=== PATIENT | male | born 1965 | race Caucasian/White ===

== ENCOUNTER 2019-10-31 10:35 | Day surgery (SDC) | payer OTHER, SELFPAY ==
[2019-10-31] VITALS (9 sets, daily range): BP systolic 110–161; BP diastolic 66–91; PULSE 55–95; RESP 13–22; TEMP 36.7–36.9; O2SAT 95–99
--- NOTE | ~2019-10-31 | CT_ITS ---
EXAMINATION: CT abdomen pelvis wo con DATE: 10/31/2019 11:30 INDICATION: Nephrolithiasis presenting with left flank pain. TECHNIQUE: Computed tomography (CT) of the abdomen and pelvis was performed without intravenous contr ast. Automated exposure control and iterative reconstruction technique were employed. The dose-length product was 212.57 mGy-cm. COMPARISON: None FINDINGS: Minimal dependent atelectasis in the bilateral lower lobes. Heart size is normal. No pericardial or p leural effusion. Atherosclerotic coronary artery calcifications. Liver, gallbladder, spleen, pancreas and bilateral adrenal glands are normal. 6.5 cm cyst at the mid right kidney. Combination of atheros clerotic calcifications and several renal stones at the bilateral renal keerthi. The largest renal stone s on the lower pole calyces of both kidneys measuring 6 mm on the right and 5 mm on the left. 16 x 8 x 9 mm obstructing stone at the left ureteropelvic junction with mild left hydronephrosis and perinep hric stranding. There is dense calcified atherosclerosis of the aorta and many of the other arteries with mild to moderate stenosis at the bilateral common iliac arteries. There are few scattered coloni c diverticula without adjacent inflammatory change to suggest diverticular colitis. Small bowel and a ppendix are normal. Bladder is normal. Tiny fat-containing left inguinal hernia. No free intraperiton eal gas or fluid. No pathologically enlarged abdominal or pelvic lymphadenopathy. Mild lower thoracic and minimal lumbar spondylosis. IMPRESSION: 1. Bilateral nephrolithiasis with obstructing 16 x 8 x 9 mm stone at the left ureteropelvic junction resulting in mild left hydronephrosis. Reviewed, dictated and finalized at location A. IMPRESSION: 1. Bilateral nephrolithiasis with obstructing 16 x 8 x 9 mm stone at the left u reteropelvic junction resulting in mild left hydronephrosis.
--- NOTE | ~2019-10-31 | XR_ITS ---
XR abdomen/kub 1V DATE: 10/31/2019 11:38 INDICATION: Left-sided abdominal pain for 2 days TECHNIQUE: AP projection, 2 views COMPARISON: 10/31/[address] abdomen pelvis FINDINGS: There is an approximately 8 x 17 mm calcified calculus overlying the left ureteropelvic joe ction. There is left nephromegaly and suggestion of left hydronephrosis. Prominent bilateral arterial calcifications of the kidneys are noted in addition to bilateral calcifi ed renal stones. No bowel obstruction. The psoas shadows are intact. No visceromegaly is evident. There is extensive calcification of the iliac arteries as well as abdominal aortic calcification. IMPRESSION: 8 x 17 mm left ureteropelvic calcified stone Bilateral renal calcified renal stones Reviewed, dictated and finalized at Location A. Reviewed, dictated and finalized at location B.
--- NOTE | ~2019-10-31 | XR_ITS ---
EXAMINATION: XR retrograde pyelo w/stent LT DATE: 10/31/2019 15:26 INDICATION: Left internal ureteral stent placement TECHNIQUE: Fluoroscopic images from a left internal ureteral stent placement are submitted for review . 109 seconds of fluoroscopy time. FINDINGS: There is a left double-J internal ureteral stent projecting in expected position, with proximal [place] loop at the level of the renal pelvis and distal loop in the pelvis within the bladder lumen. IMPRESSION: 1. Left internal ureteral stent placement. Please refer to real-time procedural findings for detail s. Reviewed, dictated and finalized at location A. IMPRESSION: 1. Left internal ureteral stent placement. Please refer to real-time procedur al findings for details.
[2019-10-31] MEDS: SODIUM CHLORIDE 0.9% IV 1,000 ML 999 ML IV CONT ×2 (11:15→12:36)
[2019-10-31 11:57] LABS: Basophils Absolute Auto 0.1 K/mm3 (0.0-0.1); Basophils Percent Auto 0.6 % (0.2-1.2); Eosinophils Absolute Auto 0.1 K/mm3 (0-0.3); Eosinophils Percent Auto 0.7 % (0-4.4); Hematocrit 44.1 % (42.0-52.0); Hemoglobin 15.1 g/dL (14.0-18.0); Immature Granulocyte Absolute 0.04 K/mm3 (0.00-0.031); Immature Granulocyte Percent A 0.3 % (0-0.5); Lymphocytes Absolute Auto 2.78 K/mm3 (0.9-3.2); Mean Corpuscular HGB Conc 34.2 g/dl (32-36); Mean Corpuscular Hemoglobin 30.2 pg (26-34); Mean Corpuscular Volume 88.2 fl (80-100); Mean Platelet Volume 9.5 fl (7.4-10.4); Monocytes Absolute Auto 1.2 K/mm3 (0.1-0.6); Monocytes Percent Auto 7.9 % (2.6-8.5); Neutrophils Absolute Auto 10.5 K/mm3 (1.3-6.7); Neutrophils Percent Auto 71.5 % (45.5-73.1); Platelet Count Result 359 k/mm3 (150-375); Red Cell Distribution Width 12.7 % (11.5-14.5); White Blood Count 14.6 K/mm3 (4.5-10.0)
[2019-10-31 12:10] LABS: Alanine Aminotransferase 10 U/L (4-50); Alkaline Phosphatase 105 U/L (38-126); Aspartate Amino Transferase 18 U/L (17-59); Bilirubin,Total 0.8 mg/dL (0.2-1.3); Blood Urea Nitrogen 15 mg/dL (9-20); Calcium 8.7 mg/dL (8.4-10.2); Carbon Dioxide 27 mmol/L (22-30); Chloride 102 mmol/L (98-107); Estimated CRCL calculation 103 ml/min; Estimated Glomerular Filt Rate > 60; Glucose 92 mg/dL (75-110); Potassium 3.7 mmol/L (3.4-5.0); Sodium 135 mmol/L (137-145)
[2019-10-31] MEDS: FAMOTIDINE 20 MG/2 ML VIAL IV PUSH (12:13)
[2019-10-31] MEDS: MORPHINE SULFATE 4 MG/ML INJ IV PUSH ×2 (12:13→13:50)
[2019-10-31 12:53] LABS: Add Urine Microscopic? YES; Appearance Urine Clear (Clear); Bacteria Urine Trace /hpf; Bilirubin Urine Negative (Negative); Blood Urine 2+ (Negative); Color Urine Yellow (Yellow); Glucose Urine UA Negative (Negative); Ketones Urine Negative (Negative); Leukocyte Esterase Ur 3+ LEU/UL (Negative); Mucus Urine Rare /lpf; Nitrate Urine Negative (Negative); Protein Urine 1+ mg/dL (Negative); WBC Urine 31-50 /hpf
--- NOTE | 2019-10-31 14:14 | ED.ABDPAIN ---
HPI - Abdominal Pain General Chief Complaint: Urogenital-Male Stated Complaint: Poss kidney stone Time Seen by Provider: 10/31/19 10:40 Source: patient and family Mode of arrival: ambulatory Limitations: no limitations History of Present Illness HPI narrative: Patient is a 54-year-old male who presents for evaluation of left flank pain was seen last night diagnosed with a large stone patient notes moderate aching pain to the left flank which has been persistent when it initially onset he had multiple episodes of emesis which have improved patient notes he has continued to have pain. Patient notes history of urolithiasis. Patient did not fill his medication Related Data Home Medications Medication Instructions Recorded Confirmed No Home Medications 10/31/19 10/31/19 Allergies Allergy/AdvReac Type Severity Reaction Status Date / Time No Known Allergies Allergy Verified 10/31/19 11:25 Review of Systems Review of Systems: All systems reviewed & are unremarkable except as noted in HPI and below PMFSH Past Medical History Medical History Urolithiasis Surgical History Surgical History H/O lithotripsy Social History Social History (Updated 10/31/19 @ 14:18 by Jeffery Barnes PA-C) Smoking status: Current every day smoker Gender identity (if verbalized by the patient): Male Exam Narrative: Exam Narrative: GENERAL: Well-appearing, well-nourished, and in no acute distress. HEAD: Normocephalic, atraumatic. EYES: PERRLA and EOMI. ENT: Nares clear, no rhinorrhea or epistaxis. Mucous membranes moist. CHEST: Clear to auscultation. No respiratory distress. No wheezes rales or rhonchi HEART: Regular rate and rhythm. No murmur heard. Normal peripheral pulses. ABDOMEN: Soft, tenderness left flank, nondistended EXTREMITIES: Normal range of motion. No edema. SKIN: Warm, dry, no rash. NEURO: No focal deficits. Alert and oriented x3. PSYCH: Normal mood and affect. Course Course Emergency Course: Patient in the room aware of case findings treatment plan diagnosis. Patient given antibiotics fluids and pain management in the emergency department. Patient aware of discussion with urology Reevaluation(s) Reevaluation #1: Patient resting comfortably in the room in no distress aware of case findings treatment plan and diagnosis Date: 10/31/19 Time: 14:19 Consultations Consultation #1: Case discussed with urology who will take the patient to the operative suite would like ciprofloxacin antibiotic to be given Date: 10/31/19 Time: 14:20 Vital Signs Vital signs: Vital Signs Temperature 98.0 F 10/31/19 10:55 Pulse Rate 95 10/31/19 10:55 Respiratory Rate 14 10/31/19 10:55 Blood Pressure 158/91 H 10/31/19 10:55 Pulse Oximetry 95 10/31/19 10:55 Temperature 98.0 F 10/31/19 10:55 Pulse Rate 70 10/31/19 12:15 Respiratory Rate 20 10/31/19 12:15 Blood Pressure 156/82 H 10/31/19 12:15 Pulse Oximetry 99 10/31/19 12:15 MDM - Abdominal Pain MDM Narrative Medical decision making narrative: Patient with urolithiasis stable on the emergency department will go to the OR for stenting by urology Lab Data Result diagrams: 10/31/19 11:44 10/31/19 11:44 Labs: Lab Results 10/31/19 10/31/19 10/31/19 Range/Units 11:44 11:44 12:37 WBC 14.6 H (4.5-10.0) K/mm3 RBC 5.00 (4.6-6.20) M/mm3 Hgb 15.1 (14.0-18.0) g/dL Hct 44.1 (42.0-52.0) % MCV 88.2 (80-100) fl MCH 30.2 (26-34) pg MCHC 34.2 (32-36) g/dl RDW 12.7 (11.5-14.5) % Plt Count 359 (150-375) k/mm3 MPV 9.5 (7.4-10.4) fl Immature Gran % (Auto) 0.3 (0-0.5) % Neut % (Auto) 71.5 (45.5-73.1) % Lymph % (Auto) 19.0 (18.3-44.2) % [place] % (Auto) 7.9 (2.6-8.5) % Eos % (Auto) 0.7 (0-4.4) % Baso % (Auto) 0.6 (0.2-1.2) % Lymph # (Au
[2019-10-31] MEDS: LACTATED RINGERS 1,000 ML 30 ML IV CONT ×2 (14:20→15:29)
--- NOTE | 2019-10-31 14:28 | WPDURCON ---
Assessment and Plan Assessment and plan (1) Urolithiasis: Code(s): N20.9 - Urinary calculus, unspecified Status: Acute Assessment and Plan: Obtain Consent: Cystoscopy, left ureteroscopy with stent placement, left retrograde pyelogram. Go to OR today. Will plan to do a lithotripsy on the left next week after infection clears. Obtain urine culture. Urology Consult Note HPI Date Seen: 10/31/19 Requesting Physician: Kinga Graf MD Primary Care Provider: MARKETING DESIGNER PHYSICIAN Consult Narrative Narrative: Raul Courtney is a 54 year old male who presented to the ER today for left flank pain and vomiting that has persisted since Sunday night. He initially went to [facility] and was unhappy with his treatment there and requested to be transferred here for further treatment. He also states he had some hematuria, but denies fever, dysuria or abdominal pain. His WBC is 14.6 and creatinine is 0.70, UA suggests a UTI, urine culture will be collected. CT abdomen/pelvis shows a 16mm stone in the left ureter with hydronephrosis as well as bilateral non obstructive stones in the kidneys. KUB shows left ureteral stone present. Patient has a history of stones in the past with stent placement. Review of Systems Cardiovascular: Cardiovascular: Denies chest pain Respiratory: Respiratory: Reports no additional respiratory complaints Gastrointestinal: Gastrointestinal: Denies abdominal pain, Reports nausea and Reports vomiting Genitourinary: Genitourinary: Reports hematuria, Denies dysuria, Reports flank pain, Denies urinary frequency and Denies urinary urgency PMFSH Past Medical History Medical History Urolithiasis Surgical History Surgical History H/O lithotripsy Social History Social History Smoking status: Current every day smoker Gender identity (if verbalized by the patient): Male Meds Home Medications and Allergies Home Medications Medication Instructions Recorded Confirmed Type No Home Medications 10/31/19 10/31/19 History Allergies Allergy/AdvReac Type Severity Reaction Status Date / Time No Known Allergies Allergy Verified 10/31/19 11:25 Vital Signs Vital Signs - 24 hr 10/31/19 10:55 07/10/20 12:15 Temperature 98.0 F Pulse Rate 95 70 Respiratory Rate 14 20 Blood Pressure 158/91 H 156/82 H Pulse Oximetry 95 99 Exam Resp: Effort & Inspection: normal respiratory effort Cardio: Rate: regular rate GI: GI Palp: Yes Soft to palpation and No Tenderness to palpation present (GI) : General: Yes CVA tenderness on the left Extrem: General: no edema Results Labs CBC & Chem 7: 10/31/19 11:44 10/31/19 11:44 Labs: Short CBC 10/31/19 Range/Units 11:44 WBC 14.6 H (4.5-10.0) K/mm3 Hgb 15.1 (14.0-18.0) g/dL Hct 44.1 (42.0-52.0) % Plt Count 359 (150-375) k/mm3 BMP 10/31/19 11:44 Sodium 135 L Potassium 3.7 Chloride 102 Carbon Dioxide 27 BUN 15 Creatinine 0.70 Glucose 92 Calcium 8.7 Liver Function 10/31/19 Range/Units 11:44 Total Bilirubin 0.8 (0.2-1.3) mg/dL AST 18 (17-59) U/L ALT 10 (4-50) U/L Alkaline Phosphatase 105 (38-126) U/L Albumin 4.0 (3.5-5.1) g/dL Urine 10/31/19 Range/Units 12:37 Urine Color Yellow (Yellow) Urine Appearance Clear (Clear) Urine pH 7.0 (5.0-9.0) Ur Specific [employer] 1.010 (1.001-1.035) Urine Protein 1+ H (Negative) mg/dL Urine Glucose (UA) Negative (Negative) mg/dL
--- NOTE | 2019-10-31 14:32 | WPDANESEPPF ---
Anes - Initial Pre Proc Eval Procedure: Operation Date: 10/31/19 14:30 Proposed Procedures p Cystoscopy, Left Retrograde Pyelogram, Left Stent Placement - Kinga Graf MD Date/Time: 10/31/19 14:32 Surgeon: Kinga Graf MD Pre Op Diagnosis: Poss kidney stone Patient Data Age: 54 Gender: M Height: 5 ft 9 in Weight: 75 kg Last Vital Signs Temp 36.7 C 10/31/19 10:55 Pulse 70 10/31/19 12:15 Resp 20 10/31/19 12:15 BP 156/82 H 10/31/19 12:15 Pulse Ox 99 10/31/19 12:15 Allergies Allergy/AdvReac Type Severity Reaction Status Date / Time No Known Allergies Allergy Verified 10/31/19 11:25 Home Medications Medication Instructions Recorded Confirmed Type No Home Medications 10/31/19 10/31/19 History Laboratory Tests 10/31/19 10/31/19 10/31/19 11:44 11:44 12:37 WBC 14.6 K/mm3 H K/mm3 (4.5-10.0) RBC 5.00 M/mm3 M/mm3 (4.6-6.20) Hgb 15.1 g/dL g/dL (14.0-18.0) Hct 44.1 % % (42.0-52.0) MCV 88.2 fl fl (80-100) MCH 30.2 pg pg (26-34) MCHC 34.2 g/dl g/dl (32-36) RDW 12.7 % % (11.5-14.5) Plt Count 359 k/mm3 k/mm3 (150-375) MPV 9.5 fl fl (7.4-10.4) Immature Gran % (Auto) 0.3 % % (0-0.5) Neut % (Auto) 71.5 % % (45.5-73.1) Lymph % (Auto) 19.0 % % (18.3-44.2) [place] % (Auto) 7.9 % % (2.6-8.5) Eos % (Auto) 0.7 % % (0-4.4) Baso % (Auto) 0.6 % % (0.2-1.2) Lymph # (Auto) 2.78 K/mm3 K/mm3 (0.9-3.2) [place] # (Auto) 1.2 K/mm3 H K/mm3 (0.1-0.6) Eos # (Auto) 0.1 K/mm3 K/mm3 (0-0.3) Baso # (Auto) 0.1 K/mm3 K/mm3 (0.0-0.1) Abs Immat Gran (auto) 0.04 K/mm3 H K/mm3 (0.00-0.031) Absolute Neuts (auto) 10.5 K/mm3 H K/mm3 (1.3-6.7) Absolute Nucleated RBC 0.0 K/mm3 K/mm3 (0.0-0.012) Nucleated RBC % 0.0 % % (0.0-0.2) Sodium 135 mmol/L L mmol/L (137-145) Potassium 3.7 mmol/L mmol/L (3.4-5.0) Chloride 102 mmol/L mmol/L (98-107) Carbon Dioxide 27 mmol/L mmol/L (22-30) BUN 15 mg/dL mg/dL (9-20) Creatinine 0.70 mg/dL mg/dL (0.7-1.3) Estim Creat Clear Calc 103 ml/min ml/min Estimated GFR > 60 (59 - ) Glucose 92 mg/dL mg/dL (75-110) Calcium 8.7 mg/dL mg/dL (8.4-10.2) Total Bilirubin 0.8 mg/dL mg/dL (0.2-1.3) AST 18 U/L U/L (17-59) ALT 10 U/L U/L (4-50) Alkaline Phosphatase 105 U/L U/L (38-126) Total Protein 7.0 g/dL g/dL (6.3-8.2) Albumin 4.0 g/dL g/dL (3.5-5.1) Urine Color Yellow (Yellow) Urine Appearance Clear (Clear) Urine pH 7.0 (5.0-9.0) Ur Specific [place] 1.010 (1.001-1.035) Urine Protein 1+ mg/dL H mg/dL (Negative) Urine Glucose (UA) Negative mg/dL mg/dL (Negative) Urine Ketones Negative mg/dL mg/dL (Negative) Ur Blood (Man) 2+ H (Negative) Urine Nitrate Negative (Negative) Urine Bilirubin Negative (Negative) Urine Urobilinogen 2.0 mg/dL H mg/dL (<2.0) Leukocyte Esterase Rfl 3+ ANGELIA/UL H ANGELIA/UL (Negative) Urine RBC 6-10 /hpf H /hpf (0-2) Urine WBC 31-50 /hpf H /hpf Urine Bacteria Trace /hpf /hpf Urine Mucus Rare /lpf /lpf Patient hx anesthesia problems: none Family hx anesthesia problems: none [facility] Past Medical History Medical History Urolithiasis Surgical History Surgical History H/O lithotripsy Social History Social History Smoking status: Current every day smoker Gen
[2019-10-31] MEDS: CIPROFLOXACIN 400 MG/D5W 200ML 200 ML 200 MG IVPB (14:56)
[2019-10-31] MEDS: LIDOCAINE HCL 2% GEL UROJET 10 ML PKG MUCOUS MEM (15:21)
--- NOTE | 2019-10-31 20:12 | OP_ITS ---
DATE OF PROCEDURE: 10/31/2019 PREOPERATIVE DIAGNOSES: 1. Left UPJ stone, 60 mm. 2. Left hydronephrosis. 3. Presumed urinary tract infection. POSTOPERATIVE DIAGNOSES: 1. Left UPJ stone, 60 mm. 2. Left hydronephrosis. 3. Presumed urinary tract infection. PROCEDURE PERFORMED: 1. Cystoscopy. 2. Left retrograde pyelogram. 3. Left ureteral stent insertion. INDICATION FOR PROCEDURE: The patient is a very pleasant gentleman who presented to the emergency department with pain due to a left-sided UPJ stone that was found to be large causing hydronephrosis. He has a urinary tract infection concerning for UTI. I discussed risks, benefits, and alternatives and the patient agrees to proceed with cystoscopy and stent insertion today with plan for delayed definitive stone management. He understands the risk of procedure including, not limited to infection, bleeding, pain, inability to wire past the stone, and inability to place a stent, need for additional procedures, and complication of anesthetic. The patient agreed to proceed. DESCRIPTION OF PROCEDURE: Informed consent was obtained. The patient was taken to the operating room, given preoperative IV antibiotics. He was induced with anesthesia. He was placed in the dorsal lithotomy position. He was prepped and draped in a normal sterile fashion. We inserted a 20-[place]ian cystoscope through the urethra into the bladder and the patient had no mucosal abnormalities noted. We cannulated the left ureteral orifice. A retrograde pyelogram revealed a delicate ureter up to the UPJ where the large stone was identified with [id number] hydronephrosis above the level of the stone. A Bentson wire would not easily pass beyond the stone. We therefore switched to an angled Glidewire, which was able to manipulate past the stone. We then advanced a 5-[place]ian angiographic catheter over the wire. We aspirated fluid and this was sent for culture. The urine did not appear visibly purulent or infected. We then placed a 4.8 variable length stent with a curl in renal pelvis and a curl in the bladder. The bladder was emptied. 10 mL of lidocaine was then instilled and the patient was awakened, taken to the recovery room in stable condition. IV FLUIDS: Per Anesthesia. COMPLICATIONS: None. ESTIMATED BLOOD LOSS: Minimal. FOLLOWUP: The patient will be discharged home today. He will plan for definitive stone management in the coming weeks likely with the left ESWL. D I MT: Dulce Maria
== END 2019-10-31 16:57 | disposition home or self-care (01) ==
LOC: ANHED 14:08 → ANHSURGERY 14:19
PROVIDERS: Emergency Medicine Emergency Medical Services; Emergency Provider Emergency Medicine; Visit Provider Urology
PROC: (CPT 52352; principal; 2019-10-31 14:30)
DX: N13.6 Pyonephrosis (principal)
CPT/HCPCS: 52332; 36415; 74018; 74176; 74420; 80053; 81001; 85025; 87070; 87075; 87086; 87205; 96361; 96374; 96375; 96376; 99285; C1769; C1887; C2617; J0131; J0744; J1100; J2270; J2405; J2704; J3010; J7030; J7120; Q9966

== ENCOUNTER 2019-11-03 14:14 | Outpatient (CLI) | payer OTHER, SELFPAY ==
--- NOTE | 2019-11-03 14:16 | ECG_ITS ---
Measurements Intervals [place] Rate: 62 P: 58 MN: 126 QRS: -28 QRSD: 104 T: 6 QT: 407 QTc: 416 Interpretive Statements SINUS RHYTHM RSR' IN V1 OR V2, CONSIDER RIGHT VENTRICULAR HYPERTROPHY OR RIGHT VCD DELAYED PRECORDIAL R/S TRANSITION VOLTAGE CRITERIA FOR LVH MINIMAL Q WAVES- HIGH LATERAL LEADS BORDERLINE T WAVE ABNORMALITY- INFERIOR LEADS BASELINE ARTIFACT- I, III, AVL, AVF BORDERLINE ECG Electronically Signed On 11-03-2019 15:36:00 CDT by Otto Vasquez D.O.
[2019-11-03 14:53] LABS: Partial Thromboplastin Time 32.6 SECONDS (22.3-36.8); Prothrombin Time 12.9 Seconds (11.1-14.7)
== END 2019-11-03 14:15 | disposition home or self-care (01) ==
LOC: ANHSURGERY 14:16
PROVIDERS: Visit Provider Urology
DX: Z72.0 Tobacco use (principal); N20.9 Urinary calculus, unspecified; R94.31 Abnormal electrocardiogram [ECG] [EKG]
CPT/HCPCS: 36415; 85610; 85730; 93005

== ENCOUNTER 2019-11-05 00:49 | Outpatient (CLI) | payer OTHER, SELFPAY ==
[2019-11-05 22:08] LABS: SARS-CoV-2 RNA PCR Negative
== END 2019-11-05 00:50 | disposition home or self-care (01) ==
LOC: ANHCOVIDDT 00:49
PROVIDERS: Visit Provider Urology
DX: Z01.818 Encounter for other preprocedural examination (principal); Z11.59 Encounter for screening for other viral diseases
CPT/HCPCS: 87635; C9803; U0003

== ENCOUNTER 2019-11-07 04:00 | Day surgery (SDC) | payer OTHER, SELFPAY ==
[2019-11-03 12:26] VITALS: BMI 26.6
[2019-11-07] VITALS (8 sets, daily range): BP systolic 110–143; BP diastolic 65–84; PULSE 68–80; RESP 12–20; TEMP 36.3–36.7; O2SAT 95–100
--- NOTE | ~2019-11-07 | XR_ITS ---
XR abdomen/kub 1V 11/07/2019 11:30 INDICATION: Renal stones. Lithotripsy. TECHNIQUE: KUB COMPARISON: 10/31/2019 FINDINGS: Bowel gas pattern is normal. There is no evidence of free air, mass, organomegaly, ascites or obstruction. There are bilateral renal stones. There is a left internal ureteral stent in expecte d position. There is a large stone in the left renal pelvis at the L2-3 level measuring approximately 2.2 cm in length. There are extensive vascular calcifications. Bowel pattern nonobstructive. Lung ba ses unremarkable. Bones appear intact. IMPRESSION: 1: Bilateral nephrolithiasis with interval placement of left internal ureteral stent. Largest left re nal stone presumably in the renal pelvis measures 2.2 cm in length. Reviewed, dictated and finalized at location B. IMPRESSION: 1: Bilateral nephrolithiasis with interval placement of left internal ureteral stent. Largest left renal stone presumably in the renal pelvis measures 2.2 cm in length.
--- NOTE | 2019-11-07 11:39 | WPDHPUPDATE1 ---
History and Physical Update Update Date/Time: 11/07/19 11:39 History and Physical has been reviewed, including an updated exam of the patient. There are NO changes in the patient's condition. Risks, benefits, and alternatives have been discussed and questions answered. Patient agrees to proceed with procedure.
[2019-11-07] MEDS: LACTATED RINGERS 1,000 ML 30 ML IV CONT ×2 (12:10→14:00)
--- NOTE | 2019-11-07 12:57 | WPDANESEPPF ---
Anes - Initial Pre Proc Eval Procedure: Operation Date: 11/07/19 13:30 Proposed Procedures p Left Extracorporeal Shock Wave Lithotripsy - Petr Kan MD Date/Time: 11/07/19 12:57 Surgeon: Petr Kan MD Pre Op Diagnosis: Left Ureteral Stone N20.1 Patient Data Age: 54 Gender: M Height: 5 ft 9 in Weight: 80.2 kg Last Vital Signs Temp 36.7 C 11/07/19 12:10 Pulse 75 11/07/19 12:10 Resp 18 11/07/19 12:10 BP 122/68 11/07/19 12:10 Pulse Ox 98 11/07/19 12:10 Allergies Allergy/AdvReac Type Severity Reaction Status Date / Time No Known Allergies Allergy Verified 11/07/19 12:08 Home Medications Medication Instructions Recorded Confirmed Type ciprofloxacin HCl [Cipro] 500 mg PO Q12H 7 Days #14 tablet 10/31/19 11/07/19 Rx oxybutynin chloride 5 mg PO TID PRN #21 tablet 10/31/19 11/03/19 Rx Patient hx anesthesia problems: none Family hx anesthesia problems: none PMFSH Social History Social History Smoking packs per day: 2 Smoking cigarettes per day: 40.0 Years smoked: 43 Smoking pack-years: 86.00 Smoking status: Current every day smoker Tobacco type: cigarettes Substance use type: marijuana Last use: 11/03/19 Gender identity (if verbalized by the patient): Male Spiritual care concerns: No Anes - Eval Final PreProcedure Day of Procedure 11/07/19 12:57 Patient weight: overweight Heart: regular rate and rhythm Lungs: decreased breath sounds Airway: Mallampati scale class II Neurological: alert and oriented Last oral intake: >/= 8 hours ASA classification: III Emergent: no Anesthetic plan: proceed Anesthesia type and monitoring: general LMA and standard monitoring Informed Consent: The patient's anesthetic plan and its attendant risks and benefits were discussed with the patient/family/POA. Questions were solicited and answers provided to the satisfaction of the patient/family/POA.
[2019-11-07] MEDS: ceFAZolin 2 GM/D5W 50 ML 2 GM/50 ML BAG IVPB (13:10)
--- NOTE | 2019-11-07 13:55 | PM.PROC ---
Procedure Note - Detailed Date of procedure: 11/07/19 Pre-op diagnosis: Left Ureteral Stone N20.1 Post-op diagnosis: same Procedure performed: ESWL of 2 cm left UPJ calculus Description of procedure: Patient was taken to the operative suite and correctly identified. Once anesthesia was obtained he was placed in the supine position with the stone localized in both planes. Two thousand five hundred shocks were given to the stone. It appears to be a fairly hard stone and will have to wait and see how much fragmentation if any there will be. He will follow up with KUB in about 10 days. Decision will most likely need to be made regarding repeat treatment versus holmium laser versus percutaneous nephrolithotomy. Anesthesia: GLMA Surgeon: Petr Kan MD Drains: No Packing: No Pathology: none sent Complications: No immediate complications Condition: stable Disposition: PACU
== END 2019-11-07 15:50 | disposition home or self-care (01) ==
PROVIDERS: Visit Provider Urology
PROC: (CPT 50590; principal; 2019-11-07 13:30)
DX: N20.1 Calculus of ureter (principal); F17.210 Nicotine dependence, cigarettes, uncomplicated; F12.90 Cannabis use, unspecified, uncomplicated
CPT/HCPCS: 50590; 74018; J0690; J1100; J2250; J2405; J2704; J3010; J7120

== ENCOUNTER 2019-12-01 14:33 | Outpatient (CLI) | payer OTHER, SELFPAY ==
[2019-12-01 15:30] LABS: Prothrombin Time 12.4 Seconds (11.1-14.7)
[2019-12-01 15:31] LABS: Partial Thromboplastin Time 34.2 SECONDS (22.3-36.8)
== END 2019-12-01 14:34 | disposition home or self-care (01) ==
LOC: ANHSURGERY 14:36
PROVIDERS: Visit Provider Urology
DX: Z01.818 Encounter for other preprocedural examination (principal); N20.9 Urinary calculus, unspecified
CPT/HCPCS: 36415; 85610; 85730; 87086

== ENCOUNTER 2019-12-10 02:19 | Outpatient (CLI) | payer OTHER, SELFPAY ==
[2019-12-10 18:39] LABS: SARS-CoV-2 RNA PCR Negative
== END 2019-12-10 02:20 | disposition home or self-care (01) ==
LOC: ANHCOVIDDT 02:19
PROVIDERS: Visit Provider Urology
DX: Z01.812 Encounter for preprocedural laboratory examination (principal); Z20.828 Contact with and (suspected) exposure to other viral communicable diseases
CPT/HCPCS: 87635; C9803; U0003

== ENCOUNTER 2019-12-12 00:19 | Day surgery (SDC) | payer OTHER, SELFPAY ==
[2019-11-26 08:37] VITALS: BMI 26.6
[2019-12-12] VITALS (8 sets, daily range): BP systolic 128–160; BP diastolic 69–86; PULSE 63–99; RESP 12–18; TEMP 36–36.5; O2SAT 95–100; BMI 25.9
--- NOTE | ~2019-12-12 | XR_ITS ---
EXAMINATION: XR abdomen/kub 1V DATE: 12/12/2019 06:04 INDICATION: Bilateral nephrolithiasis. TECHNIQUE: A supine view of the abdomen on 2 radiographs was obtained. COMPARISON: CT abdomen and pelvis 10/31/2019, radiographs 11/07/2019 FINDINGS: There are no dilated loops of bowel. There are vascular calcifications at the keerthi of the k idneys. There is a 10 mm stone in right kidney lower pole. There are greater than 10 stones in left k idney measuring up to 9 mm. There is a 7 mm stone in proximal left ureter. IMPRESSION: 1. Stones in the kidneys and proximal left ureter with left internal ureteral stent in expected posit ion. Reviewed, dictated and finalized at location A. IMPRESSION: 1. Stones in the kidneys and proximal left ureter with left internal ureteral s tent in expected position.
--- NOTE | 2019-12-12 07:03 | WPDANESEPPF ---
Anes - Initial Pre Proc Eval Procedure: Operation Date: 12/12/19 07:30 Proposed Procedures p Left Ureteropelvic Junction Extracorporeal Shock Wave Lithotripsy - Petr Kan MD Date/Time: 12/12/19 07:03 Surgeon: Petr Kan MD Pre Op Diagnosis: kidney stone left renal Patient Data Age: 54 Gender: M Height: 5 ft 9 in Weight: 79.6 kg Last Vital Signs Temp 36.3 C L 12/12/19 07:02 Pulse 73 12/12/19 07:02 Resp 16 12/12/19 07:02 BP 160/86 H 12/12/19 07:02 Pulse Ox 97 12/12/19 07:02 Allergies Allergy/AdvReac Type Severity Reaction Status Date / Time No Known Allergies Allergy Verified 12/12/19 06:59 Home Medications Medication Instructions Recorded Confirmed Type No Home Medications 11/26/19 11/26/19 History Patient hx anesthesia problems: none Family hx anesthesia problems: none PMFSH Social History Social History Smoking packs per day: 2 Smoking cigarettes per day: 40.0 Years smoked: 43 Smoking pack-years: 86.00 Smoking status: Current every day smoker Tobacco type: cigarettes Substance use: current Substance use type: marijuana Last use: 11/03/19 Gender identity (if verbalized by the patient): Male Spiritual care concerns: No Anes - Eval Final PreProcedure Day of Procedure 12/12/19 07:03 Patient weight: overweight Heart: regular rate and rhythm Lungs: decreased breath sounds Airway: Mallampati scale class II Neurological: alert and oriented Last oral intake: >/= 8 hours ASA classification: III Emergent: no Anesthetic plan: proceed Anesthesia type and monitoring: general LMA and standard monitoring Informed Consent: The patient's anesthetic plan and its attendant risks and benefits were discussed with the patient/family/POA. Questions were solicited and answers provided to the satisfaction of the patient/family/POA.
[2019-12-12] MEDS: LACTATED RINGERS 1,000 ML 30 ML IV CONT ×2 (07:04→08:23)
--- NOTE | 2019-12-12 07:15 | PM.IMHP ---
H&P: HPI History of Present Illness Date/Time: 12/12/19 07:15 Chief complaint: kidney stone left renal Narrative: Raul Courtney is a 54 year old male with residual left renal stones after an eswl treatment. Here for second eswl Review of Systems Review of Systems: All systems reviewed & are unremarkable except as noted in HPI and below PMFSH Past Medical History Medical History Urolithiasis Surgical History Surgical History H/O lithotripsy Social History Social History Smoking packs per day: 2 Smoking cigarettes per day: 40.0 Years smoked: 43 Smoking pack-years: 86.00 Smoking status: Current every day smoker Tobacco type: cigarettes Substance use: current Substance use type: marijuana Last use: 11/03/19 Gender identity (if verbalized by the patient): Male Spiritual care concerns: No Meds Home Medications and Allergies Home Medications Medication Instructions Recorded Confirmed Type No Home Medications 11/26/19 11/26/19 History Allergies Allergy/AdvReac Type Severity Reaction Status Date / Time No Known Allergies Allergy Verified 12/12/19 06:59 Vital Signs Vital Signs - 24 hr 12/12/19 07:02 Temperature 36.3 C L Pulse Rate 73 Respiratory Rate 16 Blood Pressure 160/86 H Pulse Oximetry 97 Exam Const: General: comfortable Eyes: General: appearance normal, both eyes and all related structures Resp: Effort & Inspection: normal respiratory effort Cardio: Rhythm: regular rhythm GI: GI Palp: Yes Soft to palpation Skin: General skin exam: normal color Neuro: Speech: normal speech Extrem: General: normal to inspection Assessment and Plan Assessment and plan (1) Urolithiasis: Code(s): N20.9 - Urinary calculus, unspecified Status: Acute Assessment and Plan: Plan for left renal/ureteral eswl
[2019-12-12] MEDS: ceFAZolin 2 GM/D5W 50 ML 2 GM/50 ML BAG IVPB (07:26)
--- NOTE | 2019-12-12 08:05 | SUR.PREOP ---
0715; DR HOU MARKED PT
--- NOTE | 2019-12-12 08:20 | PM.PROC ---
Procedure Note - Detailed Date of procedure: 12/12/19 Pre-op diagnosis: kidney stone left renal Post-op diagnosis: same Procedure performed: ESWL left renal calculi Description of procedure: patient is taken to the operative suite and correctly identified. Once anesthesia was obtained we localized what appeared to be more proximal stone along the stent and gave 500 shocks. Was no longer visible. We then given our attention to a larger more dense stone near the upper pole. The remaining 2000 shocks were given to this stone. Patient still has a heavy stone burden in the lower pole. He is taken recovery room stable condition. He will follow up in about 7-10 days with a KUB. Anesthesia: GLMA Surgeon: Petr Kan MD Drains: Yes Packing: No Pathology: none sent Complications: No immediate complications Condition: stable Disposition: PACU
== END 2019-12-12 09:50 | disposition home or self-care (01) ==
PROVIDERS: Visit Provider Urology
PROC: (CPT 50590; principal; 2019-12-12 07:30)
DX: N20.0 Calculus of kidney (principal)
CPT/HCPCS: 50590; 74018; J0131; J0690; J1100; J2250; J2590; J2704; J3010; J7120

== ENCOUNTER 2019-12-20 01:47 | Outpatient (CLI) | payer OTHER, SELFPAY ==
[2019-12-20 19:30] LABS: SARS-CoV-2 RNA PCR Negative
== END 2019-12-20 01:48 | disposition home or self-care (01) ==
LOC: ANHCOVIDDT 01:48
PROVIDERS: Visit Provider Urology
DX: Z01.812 Encounter for preprocedural laboratory examination (principal); Z11.59 Encounter for screening for other viral diseases
CPT/HCPCS: 81001; 87077; 87086; 87088; 87635; C9803; U0003

== ENCOUNTER 2019-12-20 08:42 | Outpatient (CLI) | payer OTHER, SELFPAY ==
[2019-12-20 10:26] LABS: Add Urine Microscopic? YES; Appearance Urine Cloudy (Clear); Bacteria Urine Trace /hpf; Bilirubin Urine Negative (Negative); Blood Urine 1+ (Negative); Color Urine Yellow (Yellow); Glucose Urine UA Negative (Negative); Ketones Urine Negative (Negative); Leukocyte Esterase Ur 3+ LEU/UL (Negative); Mucus Urine Rare /lpf; Nitrate Urine Negative (Negative); Protein Urine 1+ mg/dL (Negative); Squamous Epithelial Cell Urine Rare /hpf (Few); Urobilinogen Urine Negative mg/dL (<2.0); WBC Urine >75 /hpf
== END 2019-12-20 08:43 | disposition home or self-care (01) ==
PROVIDERS: Visit Provider Urology
DX: N20.9 Urinary calculus, unspecified (principal)
CPT/HCPCS: 81001; 87077; 87086; 87088

== ENCOUNTER 2019-12-23 01:18 | Day surgery (SDC) | payer OTHER, SELFPAY ==
[2019-12-19 10:26] VITALS: BMI 26.6
[2019-12-23] VITALS (7 sets, daily range): BP systolic 112–149; BP diastolic 61–82; PULSE 65–85; RESP 13–20; TEMP 35.7–36.1; O2SAT 95–100
--- NOTE | ~2019-12-23 | XR_ITS ---
EXAMINATION: XR retrograde pyelo w/stent LT DATE: 12/23/2019 14:16 INDICATION: Left ureteral stone. TECHNIQUE: 8 intraoperative fluoroscopic views of the abdomen and pelvis were obtained. I was not pre sent. Fluoroscopy exposure time was 43 seconds. COMPARISON: CT abdomen and pelvis 10/31/2019 FINDINGS: The left-sided retrograde pyelogram is unremarkable. The final images demonstrate a left in ternal ureteral stent in expected position. IMPRESSION: 1. Left internal ureteral stent in expected position. Reviewed, dictated and finalized at location A.
[2019-12-23] MEDS: LACTATED RINGERS 1,000 ML 30 ML IV CONT ×2 (11:21→14:19)
--- NOTE | 2019-12-23 11:36 | P.PNAN_ITS ---
Anes - Initial Pre Proc Eval Procedure: Operation Date: 12/23/19 12:00 Proposed Procedures p Cystoscopy, Left Ureteroscopy, Left Retrograde Pyelogram, Left Stone Extraction, Left Stent Placement - Petr Kan MD s Possible Holmium Laser Procedure - Petr Kan MD Date/Time: 12/23/19 11:36 Surgeon: Petr Kan MD Pre Op Diagnosis: Left Kidney Stone Patient Data Age: 54 Gender: M Height: 5 ft 9 in Weight: 80.3 kg Last Vital Signs Temp 35.7 C L 12/23/19 10:30 Pulse 85 12/23/19 10:30 Resp 16 12/23/19 10:30 BP 136/72 12/23/19 10:30 Pulse Ox 100 12/23/19 10:30 Allergies Allergy/AdvReac Type Severity Reaction Status Date / Time No Known Allergies Allergy Verified 12/19/19 09:14 Home Medications Medication Instructions Recorded Confirmed Type hydrocodone-acetaminophen [[place]] 1 tablet PO Q6H PRN 12/19/19 12/23/19 History mirabegron [Myrbetriq] 50 mg PO DAILY 12/19/19 12/23/19 History Patient hx anesthesia problems: none Family hx anesthesia problems: none PMFSH Past Medical History Medical History (Updated 12/23/19 @ 11:37 by Abelardo Salians MD) Marijuana abuse Smoker Urolithiasis Surgical History Surgical History H/O lithotripsy Social History Social History Smoking packs per day: 2 Smoking cigarettes per day: 40.0 Years smoked: 40 Smoking pack-years: 80.00 Smoking status: Current every day smoker Tobacco type: cigarettes Substance use: current Substance use type: marijuana Last use: 12/19/2019 Gender identity (if verbalized by the patient): Male Spiritual care concerns: No Anes - Eval Final PreProcedure Day of Procedure 12/23/19 11:36 Patient weight: overweight Heart: regular rate and rhythm Lungs: clear to auscultation Airway: Mallampati scale class II Neurological: alert and oriented Last oral intake: >/= 8 hours ASA classification: III Emergent: no Anesthetic plan: proceed Anesthesia type and monitoring: general LMA and standard monitoring Informed Consent: The patient's anesthetic plan and its attendant risks and benefits were discussed with the patient/family/POA. Questions were solicited and answers provided to the satisfaction of the patient/family/POA.
--- NOTE | 2019-12-23 12:47 | WPDHPUPDATE1 ---
History and Physical Update Update Date/Time: 12/23/19 12:47 History and Physical has been reviewed, including an updated exam of the patient. There are NO changes in the patient's condition. Risks, benefits, and alternatives have been discussed and questions answered. Patient agrees to proceed with procedure.
[2019-12-23] MEDS: ceFAZolin 2 GM/D5W 50 ML 2 GM/50 ML BAG IVPB (12:54)
[2019-12-23] MEDS: LIDOCAINE HCL 2% GEL UROJET 10 ML PKG MUCOUS MEM (13:11)
--- NOTE | 2019-12-23 14:16 | P.OP_ITS ---
Procedure Note - Detailed Date of procedure: 12/23/19 Pre-op diagnosis: Left Kidney Stone Post-op diagnosis: same Procedure performed: Cystoscopy, left retrograde pyelogram, left ureteroscopy with holmium laser of multiple left renal calculi, left renal stone extraction, left ureteral stent replacement 4.8 Burkinan contour Description of procedure: patient is taken to the operative suite and correctly identified. Once anesthesia was obtained he was placed in the dorsal lithotomy position and prepped and draped usual sterile fashion. Twenty-two Burkinan scope was inserted into the bladder. The stent was grasped brought out the meatus. A guidewire was passed through it. Ureteral access sheath was then placed. Mini flexible scope was inserted. There were no ureteral stones noted at this time. The kidneys inspected. He has quite a bit of the stone burden in the left middle pole calices and some in the upper pole. We used a 273 micron fiber to fragment the stones into multiple small pieces. We then retrieved approximately 20-25 stone fragments. There was no significant residual stone burden. He has have some dust present. These are too small to grasp. Pyelogram was then performed to confirm placement of the stent. 4.8 Burkinan contour stent was then passed over a wire with a proximal end coiled in the renal pelvis and the distal in the bladder. Bladder was drained. 2% viscous lidocaine was inserted urethra and patient taken recovery stable condition. He will follow up next week for stent removal. Anesthesia: GLMA Surgeon: Petr Kan MD Drains: Yes Packing: No Pathology: yes Complications: No immediate complications Condition: stable Disposition: PACU
== END 2019-12-23 15:55 | disposition home or self-care (01) ==
PROVIDERS: Visit Provider Urology
PROC: (CPT 52352; principal; 2019-12-23 12:00)
DX: N20.0 Calculus of kidney (principal); E66.3 Overweight; Z68.26 Body mass index [BMI] 26.0-26.9, adult; F17.210 Nicotine dependence, cigarettes, uncomplicated; F12.10 Cannabis abuse, uncomplicated; Z79.899 Other long term (current) drug therapy
CPT/HCPCS: 52356; 74420; 82365; 88300; A9270; C1769; C1894; C2617; J0690; J2250; J2405; J2704; J3010; J7120; Q9966

== ENCOUNTER 2019-12-25 19:49 | Emergency (ER) | payer OTHER, SELFPAY ==
--- NOTE | ~2019-12-25 | XR_ITS ---
XR abdomen/kub 1V DATE: 12/25/2019 20:52 INDICATION: Left-sided kidney pain. Status post lithotripsy. TECHNIQUE: AP projection, 2 views COMPARISON: noncontrast CT abdomen pelvis FINDINGS: Left internal urinary stent is in expected position. There are extensive bilateral renal artery calcifications. Bilateral calcified renal stones are sugge sted. There are gas containing nondilated small bowel segments overlying the mid to upper abdomen, likely m ild adynamic ileus. No bowel obstruction is evident. There are extensive calcifications in the lateral aortic, iliac and femoral arteries. The lung bases are clear. IMPRESSION: Left internal urinary stent Bilateral nephrolithiasis Reviewed, dictated and finalized at [facility]. Reviewed, dictated and finalized at location A.
--- NOTE | ~2019-12-25 | CT_ITS ---
EXAMINATION: CT abdomen pelvis wo con DATE: 12/25/2019 20:48 INDICATION: Left lower abdominal pain. Status post lithotripsy. TECHNIQUE: Computed tomography (CT) of the abdomen and pelvis was performed without intravenous contr ast. Automated exposure control and iterative reconstruction technique were employed. Exam dose: 206 .46 mGy-cm total exam DLP. COMPARISON: 10/31/[address] abdomen pelvis 10/31/2019 right retrograde left pyelogram with stent 11/07/2019, 12/12/2019 KUB examinations 12/23/2019 left retrograde pyelogram with stent FINDINGS: The lung bases are clear. Normal heart size. No pericardial or pleural effusion. The liver, gallbladder, bile ducts, spleen, pancreas, pancreatic duct and adrenal glands are unremark able. Approximately 6.4 cm right renal cyst. Bilateral nonobstructive nephrolithiasis. There is extensive calcification of the renal arteries bilaterally. There is interval placement of a left internal urinary stent which is in expected position. No hydron ephrosis is noted. There is a mild amount of air in the left renal pelvis and left renal collecting s ystem. There is left nephromegaly and perinephric fat stranding. Left pyelonephritis should be consid ered. No apparent ureteral calculus. No ureteral dilatation left hydronephrosis. No right ureteral calculus or hydroureteronephrosis. The urinary bladder is unremarkable other than the presence of the left st ent. Moderate prostate enlargement and multiple prostate calcifications. Normal appendix. No bowel obstruction, bowel wall thickening, pneumatosis or intraperitoneal free air . There is extensive calcification of the abdominal aorta, celiac, superior mesenteric, renal arteries, iliac and femoral arteries. No abdominal aortic aneurysm. No intraperitoneal or retroperitoneal or pelvic mass lesion or adenopathy or ascites. No suspicious osteolytic or osteoblastic lesions are noted. IMPRESSION: Left internal urinary stent placement Bilateral nonobstructive nephrolithiasis There is a small amount of air within the left renal pelvis and left renal collecting system and ther e is perinephric stranding on the left as well as left nephromegaly. Consider left pyelonephritis. Approximately 6.4 cm right renal cyst Extensive atherosclerosis, especially prominent at the renal arteries Reviewed, dictated and finalized at [facility]. Reviewed, dictated and finalized at location A. IMPRESSION: Left internal urinary stent placement Bilateral nonobstructive nephrolithiasis There is a small amount of air within the left renal pelvis and left renal dav ecting system and there is perinephric stranding on the left as well as left ne phromegaly. Consider left pyelonephritis. Approximately 6.4 cm right renal cyst Extensive atherosclerosis, especially prominent at the renal arteries
--- NOTE | 2019-12-25 20:07 | ED.ABDPAIN ---
HPI - Abdominal Pain General Chief Complaint: Abdominal Pain Stated Complaint: Kidney pain Time Seen by Provider: 12/25/19 19:58 Source: patient Mode of arrival: ambulatory Limitations: no limitations History of Present Illness HPI narrative: This patient is a 54 year male who presents with complaint of left lower abdominal pain. He states 2 days ago he had a lithotripsy with ureteral stent placement by Dr. Kan. Yesterday he developed lower left abdominal pain with nausea and vomiting. He reports his nausea and vomiting have resolved but he continues to have severe left lower abdominal pain. He denies any fever or chills. He also denies any difficulty urinating. He was prescribed norco but he has not taken since Sunday because he developed nausea and vomiting after taking 3 pills at once. He has completed his course of antibiotics. Related Data Home Medications Medication Instructions Recorded Confirmed Myrbetriq 50 mg PO DAILY 12/19/19 12/23/19 hydrocodone-acetaminophen [[place]] 1 tablet PO Q6H PRN 12/19/19 12/23/19 tamsulosin mg PO 12/25/19 tramadol mg 12/25/19 12/25/19 Allergies Allergy/AdvReac Type Severity Reaction Status Date / Time No Known Allergies Allergy Verified 12/19/19 09:14 Review of Systems Review of Systems: All systems reviewed & are unremarkable except as noted in HPI and below Constitutional: Constitutional: Denies chills and Denies fever(s) Gastrointestinal: Gastrointestinal: Reports abdominal pain, Denies diarrhea, Reports nausea and Reports vomiting Genitourinary: Genitourinary: Denies hematuria, Denies oliguria and Denies dysuria Musculoskeletal: Musculoskeletal: Denies back pain [facility] Past Medical History Medical History (Updated 12/25/19 @ 23:19 by Yari Yeung MD) Marijuana abuse Smoker Urolithiasis Surgical History Surgical History (Updated 12/25/19 @ 23:19 by Yari Yeung MD) H/O lithotripsy Social History Social History Smoking packs per day: 2 Smoking cigarettes per day: 40.0 Years smoked: 40 Smoking pack-years: 80.00 Smoking status: Current every day smoker Tobacco type: cigarettes Substance use: current Substance use type: marijuana Last use: 12/19/2019 Gender identity (if verbalized by the patient): Male Spiritual care concerns: No Exam Const: General: alert Orientation/consciousness: patient oriented x3 HENMT: Head: normocephalic and atraumatic Ears: TM's normal bilaterally Face and sinus: face symmetric Throat: tonsils normal and uvula midline Eyes: EOM: EOMs intact bilaterally Chest: Chest palpation & inspection: normal inspection of the chest Resp: Effort & Inspection: normal respiratory effort, no retractions and no use of accessory muscles Auscultation: clear to auscultation bilaterally Cardio: Rate: regular rate Rhythm: regular rhythm Heart sounds: no murmurs GI: GI Palp: Yes Soft to palpation, Yes Tenderness to palpation present (GI) (LLQ), No Guarding due to palpation present (GI), No Rigid due to palpation and No Hernia present : General: Yes no CVA tenderness Back/Spine/Pelvis: Back: no CVA tenderness Skin: General skin exam: normal color Rashes: no rashes Neuro: General: patient oriented x3 and moves all extremities Course Reevaluation(s) Reevaluation #1: Patient states he feels much better and his pain has resolved. He was given a dose of antibiotics and he understands return precautions. HE will otherwise follow up with Dr. Kan for stent removal. Date: 12/25/19 Time: 23:16 Consultations Consultation #1: I Discussed with Dr. Kan about patient ER visit with leukocytosis and CT findings. He is agreeable to discharge home with antibiotics. Patient to return if develop fever. Date: 12/25/19 Time: 22:14 Vital Signs Vital signs: Vital Signs Temperature 99.1 F 12/25/19 20:08 Pulse Rate 100 12/25/19 20:08
[2019-12-25 20:08] VITALS: BP 159/96; PULSE 100; RESP 20; TEMP 37.3; O2SAT 99
[2019-12-25 20:20] LABS: Basophils Absolute Auto 0.1 K/mm3 (0.0-0.1); Basophils Percent Auto 0.7 % (0.2-1.2); Eosinophils Percent Auto 0.2 % (0-4.4); Hematocrit 48.6 % (42.0-52.0); Hemoglobin 16.9 g/dL (14.0-18.0); Immature Granulocyte Absolute 0.06 K/mm3 (0.00-0.031); Immature Granulocyte Percent A 0.3 % (0-0.5); Lymphocytes Percent Auto 18.4 % (18.3-44.2); Mean Corpuscular HGB Conc 34.8 g/dl (32-36); Mean Corpuscular Hemoglobin 30.3 pg (26-34); Mean Corpuscular Volume 87.3 fl (80-100); Mean Platelet Volume 9.6 fl (7.4-10.4); Monocytes Absolute Auto 1.4 K/mm3 (0.1-0.6); Monocytes Percent Auto 7.8 % (2.6-8.5); Neutrophils Absolute Auto 12.6 K/mm3 (1.3-6.7); Neutrophils Percent Auto 72.6 % (45.5-73.1); Platelet Count Result 402 k/mm3 (150-375); Red Blood Count 5.57 M/mm3 (4.6-6.20); Red Cell Distribution Width 13.2 % (11.5-14.5); White Blood Count 17.4 K/mm3 (4.5-10.0)
[2019-12-25] MEDS: ONDANSETRON INJ 4 MG/2 ML VIAL IV PUSH (20:23)
[2019-12-25 20:33] LABS: Alanine Aminotransferase 20 U/L (4-50); Albumin Level 4.7 g/dL (3.5-5.1); Alkaline Phosphatase 121 U/L (38-126); Anion Gap 10 mmol/L (8-16); Aspartate Amino Transferase 22 U/L (17-59); Blood Urea Nitrogen 11 mg/dL (9-20); Calcium 9.8 mg/dL (8.4-10.2); Carbon Dioxide 28 mmol/L (22-30); Chloride 98 mmol/L (98-107); Estimated CRCL calculation 103 ml/min; Estimated Glomerular Filt Rate > 60; Glucose 109 mg/dL (75-110); Lipase 96 U/L (23-300); Potassium 3.6 mmol/L (3.4-5.0); Sodium 136 mmol/L (137-145)
[2019-12-25 20:57] LABS: Ethanol < 10 mg/dL (<10)
[2019-12-25 21:49] LABS: Add Urine Microscopic? YES; Appearance Urine Clear (Clear); Bacteria Urine Trace /hpf; Bilirubin Urine Negative (Negative); Blood Urine 1+ (Negative); Color Urine Yellow (Yellow); Glucose Urine UA Negative (Negative); Ketones Urine Negative (Negative); Leukocyte Esterase Ur 2+ LEU/UL (Negative); Mucus Urine Rare /lpf; Nitrate Urine Negative (Negative); Protein Urine 2+ mg/dL (Negative); RBC Urine 21-50 /hpf (0-2); Specific Grav Ur 1.015 (1.001-1.035); Squamous Epithelial Cell Urine Rare /hpf (Few); WBC Urine 21-30 /hpf
[2019-12-25 21:57] VITALS: BP 122/70; PULSE 64; RESP 18; O2SAT 98
[2019-12-25] MEDS: SODIUM CHLORIDE 0.9% IV 1,000 ML 999 ML IV CONT (22:01)
[2019-12-25] MEDS: KETOROLAC 30 MG/ML VIAL (*BKC) IV PUSH (22:57)
[2019-12-26 00:29] VITALS: BP 124/69; PULSE 72; RESP 18; O2SAT 99
== END 2019-12-26 00:32 | disposition home or self-care (01) ==
PROVIDERS: Emergency Medicine; Emergency Provider General Practice
DX: N99.89 Other postprocedural complications and disorders of genitourinary system (principal); N39.0 Urinary tract infection, site not specified; R10.32 Left lower quadrant pain; Z96.0 Presence of urogenital implants; N20.0 Calculus of kidney; I70.1 Atherosclerosis of renal artery; N28.1 Cyst of kidney, acquired
CPT/HCPCS: 36415; 74018; 74176; 80053; 80307; 81001; 83690; 84443; 85025; 87086; 87088; 96365; 96366; 96367; 96375; 99284; J0131; J0696; J1170; J1885; J2405; J7030

== ENCOUNTER 2021-01-31 14:40 | Emergency (ER) | payer OTHER, SELFPAY ==
[2021-01-31 15:08] VITALS: BP 159/85; PULSE 79; RESP 18; TEMP 36.7; O2SAT 98
--- NOTE | 2021-01-31 16:21 | ED.WOUNDLAC ---
HPI - Wound/Laceration General Chief Complaint: Wound/Laceration Stated Complaint: sores on feet Time Seen by Provider: 01/31/21 16:04 Source: patient Mode of arrival: ambulatory Limitations: no limitations History of Present Illness HPI narrative: This is a 55-year-old male that presents to the emergency department for plantar warts present over the last couple of months. Reports he has tried several [id number] treatments without relief. Reports they are painful when he walks. Also reports he has had some intermittent cramping of his lower extremities. Denies fever, erythema, or edema. Related Data Home Medications Medication Instructions Recorded Confirmed Myrbetriq 50 mg PO DAILY 12/19/19 12/23/19 hydrocodone-acetaminophen [[place]] 1 tablet PO Q6H PRN 12/19/19 12/23/19 tamsulosin mg PO 12/25/19 tramadol mg 12/25/19 12/25/19 Allergies Allergy/AdvReac Type Severity Reaction Status Date / Time No Known Allergies Allergy Verified 12/19/19 09:14 Review of Systems Review of Systems: CONSTITUTIONAL: Denies fever SKIN: Reports rash MUSCULOSKELETAL: Reports myalgia. NEUROLOGIC: Denies numbness, or weakness. All systems reviewed & are unremarkable except as noted in HPI and below PMFSH Past Medical History Medical History (Updated 01/31/21 @ 17:37 by Mary Dejesus PA-C) Marijuana abuse Smoker Urolithiasis Surgical History Surgical History (Updated 12/27/19 @ 00:00 by Kaushik Castillo) H/O lithotripsy Social History Social History Smoking packs per day: 2 Smoking cigarettes per day: 40.0 Years smoked: 40 Smoking pack-years: 80.00 Smoking status: Current every day smoker Tobacco type: cigarettes Substance use: current Substance use type: marijuana Last use: 12/19/2019 Gender identity (if verbalized by the patient): Male Spiritual care concerns: No Exam Narrative: GENERAL: Well-appearing, well-nourished, and in no acute distress. HEAD: Normocephalic, atraumatic. EYES: EOMI. EXTREMITIES: Normal range of motion. No edema or erythema. Normal DP pulses. Normal sensation SKIN: Warm, dry, no rash. Two small plantar warts noted on each foot. No erythema or warmth to suggest infection NEURO: No focal deficits. Alert and oriented x3. PSYCH: Normal mood and affect Course Vital Signs Vital signs: Vital Signs Temperature 98.1 F 01/31/21 15:08 Pulse Rate 79 01/31/21 15:08 Respiratory Rate 18 01/31/21 15:08 Blood Pressure 159/85 H 01/31/21 15:08 Pulse Oximetry 98 01/31/21 15:08 Temperature 98.1 F 01/31/21 15:08 Pulse Rate 79 01/31/21 15:08 Respiratory Rate 18 01/31/21 15:08 Blood Pressure 159/85 H 01/31/21 15:08 Pulse Oximetry 98 01/31/21 15:08 MDM - Wound/Laceration MDM Narrative Medical decision making narrative: Patient presents to the ER for plantar warts present over the last couple of months. Has tried several over the counter treatments without relief. Was instructed that he will likely need to follow up with a animation director for these. Was also reporting some intermittent cramping in his lower extremities. No erythema or edema of the legs. He is neurovascularly intact. CBC and metabolic panel without concerning findings. Magnesium is normal. Patient was updated on case findings. Patient is stable and felt appropriate for further outpatient evaluation. He was given warnings to return to the ER Lab Data Attestation: I reviewed the patient's lab results. Result diagrams: 01/31/21 16:54 01/31/21 16:54 Labs: Lab Results 01/31/21 01/31/21 Range/Units 16:54 16:54 WBC 9.7 (4.5-10.0) K/mm3 RBC 5.21 (4.6-6.20) M/mm3 Hgb 15.8 (14.0-18.0) g/dL Hct 47.5 (42.0-52.0) % MCV 91.2 (80-100) fl MCH 30.3 (26-34) pg MCHC 33.3 (32-36) g/dl RDW 12.9 (11.5-14.5) % Plt Count 353 (150-375) k/mm3 MPV 9.5 (7.4-10.4) fl
[2021-01-31 17:01] LABS: Basophils Absolute Auto 0.1 K/mm3 (0.0-0.1); Basophils Percent Auto 1.1 % (0.2-1.2); Eosinophils Absolute Auto 0.3 K/mm3 (0-0.3); Eosinophils Percent Auto 3.2 % (0-4.4); Hematocrit 47.5 % (42.0-52.0); Hemoglobin 15.8 g/dL (14.0-18.0); Immature Granulocyte Absolute 0.04 K/mm3 (0.00-0.031); Immature Granulocyte Percent A 0.4 % (0-0.5); Lymphocytes Absolute Auto 3.68 K/mm3 (0.9-3.2); Mean Corpuscular HGB Conc 33.3 g/dl (32-36); Mean Corpuscular Hemoglobin 30.3 pg (26-34); Mean Corpuscular Volume 91.2 fl (80-100); Mean Platelet Volume 9.5 fl (7.4-10.4); Monocytes Absolute Auto 0.6 K/mm3 (0.1-0.6); Monocytes Percent Auto 5.7 % (2.6-8.5); Neutrophils Percent Auto 51.6 % (45.5-73.1); Platelet Count Result 353 k/mm3 (150-375); Red Blood Count 5.21 M/mm3 (4.6-6.20); Red Cell Distribution Width 12.9 % (11.5-14.5); White Blood Count 9.7 K/mm3 (4.5-10.0)
[2021-01-31 17:10] LABS: Anion Gap 4 mmol/L (8-16); Blood Urea Nitrogen 9 mg/dL (9-20); Calcium 9.1 mg/dL (8.4-10.2); Carbon Dioxide 33 mmol/L (22-30); Chloride 102 mmol/L (98-107); Estimated CRCL calculation 117 ml/min; Estimated Glomerular Filt Rate > 60; Glucose 84 mg/dL (65-110); Magnesium 1.8 mg/dL (1.6-2.3); Potassium 4.2 mmol/L (3.4-5.0); Sodium 139 mmol/L (137-145)
[2021-01-31 17:59] VITALS: BP 151/87; PULSE 59; RESP 16; O2SAT 96
== END 2021-01-31 17:59 | disposition home or self-care (01) ==
PROVIDERS: Physician Assistant; Emergency Provider Emergency Medicine
DX: B07.0 Plantar wart (principal); R25.2 Cramp and spasm; F17.210 Nicotine dependence, cigarettes, uncomplicated
CPT/HCPCS: 36415; 80048; 83735; 85025; 99283

== ENCOUNTER 2021-04-10 10:22 | Emergency (ER) | payer OTHER, SELFPAY ==
--- NOTE | ~2021-04-10 | XR_ITS ---
EXAMINATION: XR lumbar spine 2-3V DATE: 04/10/2021 12:25 INDICATION: Low back pain. TECHNIQUE: 3 views of lumbar spine were obtained. COMPARISON: CT abdomen and pelvis 12/25/2019 FINDINGS: There is 5 degrees dextrocurvature of lumbar spine. Vertebral body heights are normal. Ther e is mildly decreased disc height at T12-L1, L1-L2, and L3-L4. There is multilevel mild to moderate f acet joint osteoarthritis. IMPRESSION: 1. Mild lumbar spondylosis. Reviewed, dictated and finalized at location A. 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 Mild lumbar spondylosis.
[2021-04-10 11:20] VITALS: BP 179/91; PULSE 83; RESP 18; TEMP 36.3; O2SAT 98
[2021-04-10] MEDS: CYCLOBENZAPRINE HCL 10 MG TABLET PO (12:45)
[2021-04-10] MEDS: KETOROLAC 30 MG/ML VIAL (*BKC) IV PUSH (12:46)
[2021-04-10 12:47] LABS: Basophils Percent Auto 0.6 % (0.2-1.2); Eosinophils Percent Auto 0.4 % (0-4.4); Hematocrit 50.1 % (42.0-52.0); Hemoglobin 16.9 g/dL (14.0-18.0); Immature Granulocyte Absolute 0.01 K/mm3 (0.00-0.031); Immature Granulocyte Percent A 0.2 % (0-0.5); Lymphocytes Absolute Auto 1.96 K/mm3 (0.9-3.2); Lymphocytes Percent Auto 36.2 % (18.3-44.2); Mean Corpuscular HGB Conc 33.7 g/dl (32-36); Mean Corpuscular Hemoglobin 30.2 pg (26-34); Mean Corpuscular Volume 89.6 fl (80-100); Mean Platelet Volume 9.7 fl (7.4-10.4); Monocytes Absolute Auto 0.7 K/mm3 (0.1-0.6); Monocytes Percent Auto 13.3 % (2.6-8.5); Neutrophils Absolute Auto 2.7 K/mm3 (1.3-6.7); Neutrophils Percent Auto 49.3 % (45.5-73.1); Platelet Count Result 285 k/mm3 (150-375); Red Blood Count 5.59 M/mm3 (4.6-6.20); White Blood Count 5.4 K/mm3 (4.5-10.0)
[2021-04-10 12:55] LABS: Anion Gap 9 mmol/L (8-16); Blood Urea Nitrogen 12 mg/dL (9-20); Calcium 9.1 mg/dL (8.4-10.2); Carbon Dioxide 31 mmol/L (22-30); Chloride 96 mmol/L (98-107); Estimated CRCL calculation 100 ml/min; Estimated Glomerular Filt Rate > 60; Glucose 92 mg/dL (65-110); Potassium 3.8 mmol/L (3.4-5.0); Sodium 136 mmol/L (137-145)
--- NOTE | 2021-04-10 13:00 | ED.GENADULT ---
HPI - General Adult General Chief complaint: Back Pain/Injury Stated complaint: low back pain, decrease urine Time Seen by Provider: 04/10/21 12:08 Source: patient History of Present Illness HPI narrative: Patient is a 56 y/o male complaining of severe back starting 2 days ago. He describes his pain as sharp and rates it as 10/10 with movement. He states that his pain is worse with movement. He has almost no pain at rest. He states that he laid in bed for 2 days due to pain and finally got today and drove himself here. He has some nausea, but no vomiting. He has states that he has not urinated much because he did not drink much. He has no dysuria or hermaturia. Related Data Home Medications Medication Instructions Recorded Confirmed Myrbetriq 50 mg PO DAILY 12/19/19 12/23/19 hydrocodone-acetaminophen [[place]] 1 tablet PO Q6H PRN 12/19/19 12/23/19 tamsulosin mg PO 12/25/19 tramadol mg 12/25/19 12/25/19 Allergies Allergy/AdvReac Type Severity Reaction Status Date / Time No Known Allergies Allergy Verified 04/10/21 14:18 Review of Systems Constitutional: Constitutional: Denies chills, Denies fever(s), Denies headache(s) and Denies weakness Eyes: Eyes: Denies blurry vision ENT: Denies headache(s) and Denies neck pain Cardiovascular: Cardiovascular: Denies chest pain and Denies dyspnea Respiratory: Respiratory: Denies cough and Denies dyspnea Gastrointestinal: Gastrointestinal: Denies abdominal pain, Denies diarrhea, Denies nausea and Denies vomiting Genitourinary: Genitourinary: Denies hematuria and Denies dysuria Musculoskeletal: Musculoskeletal: Reports back pain and Denies neck pain Neurologic: Denies headache(s) and Denies weakness PMFSH Past Medical History Medical History Marijuana abuse Smoker Urolithiasis Surgical History Surgical History H/O lithotripsy Social History Social History Smoking packs per day: 2 Smoking cigarettes per day: 40.0 Years smoked: 40 Smoking pack-years: 80.00 Smoking status: Current every day smoker Tobacco type: cigarettes Substance use: current Substance use type: marijuana Last use: 12/19/2019 Gender identity (if verbalized by the patient): Male Spiritual care concerns: No Exam Const: General: no acute distress and well developed Orientation/consciousness: oriented to person, oriented to place, oriented to time and patient oriented x3 HENMT: Head: normocephalic Ears: external ears normal General nose exam: Normal external nose present Eyes: General: appearance normal, both eyes and all related structures Conjunctivae: conjunctivae normal Neck: Neck: normal visual inspection and full ROM Chest: Chest palpation & inspection: normal inspection of the chest and no tenderness Resp: Effort & Inspection: normal respiratory effort Auscultation: clear to auscultation bilaterally Cardio: Rate: regular rate Rhythm: regular rhythm GI: GI Palp: No abdominal tenderness and Yes Soft to palpation Skin: General skin exam: normal color and turgor normal Neuro: General: oriented to person, oriented to place, oriented to time and patient oriented x3 Cognition (Neuro): normal cognition Motor exam (neuro): 5/5 motor strength present throughout Sensory Exam: No Sensory deficit (Neuro) Extrem: General: normal to inspection, full ROM and no pedal edema Psych: Appearance: grossly normal Mental Status: mental status grossly normal Affect: normal affect Course Reevaluation(s) Reevaluation #1: Rechecked. Patient feels better. He is able to void without difficulty and he is able to ambulate without assistance. He still has back pain. Date: 04/10/21 Time: 19:15 Vital Signs Vital signs: Vital Signs Temperature 36.3 C L 04/10/21 11:20 Pulse Rate 83 04/10/21 11:20 Respiratory Rate 18 12
[2021-04-10 13:28] LABS: Add Urine Microscopic? YES; Appearance Urine Clear (Clear); Bilirubin Urine Negative (Negative); Blood Urine 1+ (Negative); Color Urine Yellow (Yellow); Glucose Urine UA Negative (Negative); Ketones Urine Negative (Negative); Leukocyte Esterase Ur Trace LEU/UL (Negative); Mucus Urine Rare /lpf; Nitrate Urine Negative (Negative); Protein Urine Negative (Negative); Specific Grav Ur 1.014 (1.001-1.035); Squamous Epithelial Cell Urine Rare /hpf (Few)
[2021-04-10] MEDS: SODIUM CHLORIDE 0.9% IV 1,000 ML 999 ML IV CONT (14:14)
[2021-04-10 14:17] VITALS: BP 152/78; PULSE 56; RESP 18; O2SAT 99
[2021-04-10] MEDS: methylPREDNISolone SOD SUCC 40 MG VIAL IV PUSH (16:40)
[2021-04-10] MEDS: diazePAM INJ (*CRX) 10 MG/2 ML SYRINGE 5 MG IV PUSH (16:49)
[2021-04-10 19:04] VITALS: BP 156/70; PULSE 62; RESP 18; O2SAT 97
== END 2021-04-10 20:05 | disposition home or self-care (01) ==
PROVIDERS: Emergency Provider Emergency Medicine
DX: M54.50 Low back pain, unspecified (principal); F17.210 Nicotine dependence, cigarettes, uncomplicated
CPT/HCPCS: 36415; 51701; 72100; 80048; 81001; 85025; 87086; 96361; 96374; 96375; 99284; A9270; J1885; J2920; J3360; J7030

== ENCOUNTER 2023-08-18 19:56 | Emergency (ER) | payer OTHER, MEDICAID, SELFPAY ==
[2023-08-18 19:58] VITALS: BP 178/100; PULSE 99; RESP 19; TEMP 36.2; O2SAT 97
[2023-08-18 20:14] VITALS: BP 174/100; PULSE 87; RESP 20; O2SAT 97
[2023-08-18 20:16] VITALS: BP 185/97; PULSE 87; RESP 19; O2SAT 97
[2023-08-18 20:50] VITALS: BP 175/89; PULSE 81; RESP 22; O2SAT 97
[2023-08-18 20:56] LABS: Basophils Absolute Auto 0.1 K/mm3 (0.0-0.1); Eosinophils Absolute Auto 0.2 K/mm3 (0-0.3); Eosinophils Percent Auto 2.5 % (0-4.4); Hematocrit 44.7 % (42.0-52.0); Hemoglobin 15.2 g/dL (14.0-18.0); Immature Granulocyte Absolute 0.04 K/mm3 (0.00-0.031); Immature Granulocyte Percent A 0.4 % (0-0.5); Lymphocytes Percent Auto 31.4 % (18.3-44.2); Mean Corpuscular Hemoglobin 30.2 pg (26-34); Mean Corpuscular Volume 88.9 fl (80-100); Mean Platelet Volume 9.3 fl (7.4-10.4); Monocytes Absolute Auto 0.7 K/mm3 (0.1-0.6); Neutrophils Absolute Auto 5.5 K/mm3 (1.3-6.7); Neutrophils Percent Auto 57.7 % (45.5-73.1); Platelet Count Result 384 k/mm3 (150-375); Red Blood Count 5.03 M/mm3 (4.6-6.20); Red Cell Distribution Width 12.6 % (11.5-14.5); White Blood Count 9.6 K/mm3 (4.5-10.0)
[2023-08-18] MEDS: SUCRALFATE 1 GM TABLET PO (21:04)
[2023-08-18] MEDS: PANTOPRAZOLE SODIUM IV 40 MG VIAL 80 MG IV PUSH (21:04)
--- NOTE | 2023-08-18 21:08 | ED.GENADULT ---
HPI - General Adult General Chief complaint: Nausea/Vomiting/Diarrhea Stated complaint: hiccups, vomiting blood Time Seen by Provider: 08/18/23 20:23 History of Present Illness HPI narrative: This is a 58 old male and pod 9 from a shoulder rotator cuff surgery performed by Dr. Pearson at an outside hospital. Patient says that several days after surgery started hiccups and vomiting with dark red blood x2-3 times a day. No abdominal pain. No history liver disease or esophageal varices. No history of heavy alcohol use. Patient is otherwise asymptomatic. Patient has been taking celecoxib and smokes 2 packs cigarettes a day. Denies alexander red blood per rectum. Patient said he spoke to the surgeon about his vomiting and the surgeon said he didn't know what to do. Related Data Home Medications Medication Instructions Recorded Confirmed hydrocodone 5 mg-acetaminophen 325 1 tablet PO Q6H PRN Pain 12/19/19 12/23/19 mg tablet ([place]) mirabegron 50 mg tablet,extended 50 mg PO DAILY 12/19/19 12/23/19 release 24 hr (Myrbetriq) tamsulosin 0.4 mg capsule mg PO 12/25/19 tramadol 50 mg tablet mg 12/25/19 12/25/19 Allergies Allergy/AdvReac Type Severity Reaction Status Date / Time No Known Allergies Allergy Verified 08/18/23 20:02 [facility] Past Medical History Medical History Marijuana abuse Smoker Urolithiasis Surgical History Surgical History H/O lithotripsy Social History Social History Smoking packs per day: 2 Smoking cigarettes per day: 40.0 Years smoked: 40 Smoking pack-years: 80.00 Smoking status: Current every day smoker Tobacco type: cigarettes Substance use: current Substance use type: marijuana Last use: 12/19/2019 Gender identity (if verbalized by the patient): Male Spiritual care concerns: No Exam Narrative: APPEARANCE: No apparent distress. Head: atraumatic. EYES: EOMI, NOSE: Atraumatic NECK: Trachea midline RESPIRATORY: No increased rate of breathing clear auscultation CARDIOVASCULAR: RRR, ABDOMINAL: Non-distended, soft, nontender, rectal exam revealed brown stool was Hemoccult positive MUSCULOSKELETAl: Patient's left arm is in a sling NEURO: Alert. Moving 4/4 extremities SKIN:: Warm, dry. Normal color PSYCHIATRIC: Normal affect Course Vital Signs Vital signs: Vital Signs Temperature 97.2 F L 08/18/23 19:58 Pulse Rate 99 08/18/23 19:58 Respiratory Rate 19 08/18/23 19:58 Blood Pressure 178/100 H 08/18/23 19:58 Pulse Oximetry 97 08/18/23 19:58 Oxygen Delivery Room Air 08/18/23 19:58 Temperature 97.2 F L 08/18/23 19:58 Pulse Rate 81 08/18/23 20:50 Respiratory Rate 22 H 08/18/23 20:50 Blood Pressure 175/89 H 08/18/23 20:50 Pulse Oximetry 97 08/18/23 20:50 Oxygen Delivery Room Air 08/18/23 19:58 Medical Decision Making MDM Narrative Medical decision making narrative: -Course: 58-year-old male presenting with hematemesis after surgery. Vital signs are stable. Hemoglobin 15.2. If patient was having significant hematemesis for last 4-5 days I would expect a drop in his hemoglobin. Rectal exam showed brown stool that was Hemoccult positive. I suspect the patient has stress ulcers from his surgery. He has been started on Protonix and Carafate. No vomiting or hiccups while in the emergency department. Given instructions to follow-up with his primary care physician and surgeon for further management. Given return precautions for continued hemoptysis, symptomatic anemia or rectal bleeding. 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
[2023-08-18 21:09] LABS: Alanine Aminotransferase 20 U/L (6-50); Albumin Level 4.2 g/dL (3.5-5.1); Alkaline Phosphatase 93 U/L (38-126); Anion Gap 5 mmol/L (4-12); Aspartate Amino Transferase 22 U/L (17-59); Bilirubin,Total 0.6 mg/dL (0.2-1.3); Blood Urea Nitrogen 14 mg/dL (9-20); Calcium 10.6 mg/dL (8.4-10.2); Carbon Dioxide 32 mmol/L (22-30); Chloride 100 mmol/L (98-107); Estimated CRCL calculation 95 ml/min; Estimated Glomerular Filt Rate > 60; Glucose 106 mg/dL (65-110); INR 0.9; Potassium 3.7 mmol/L (3.4-5.0); Prothrombin Time 12.5 Seconds (11.1-14.7); Sodium 137 mmol/L (137-145)
[2023-08-18 21:10] LABS: Partial Thromboplastin Time 29.8 Seconds (22.3-36.8)
[2023-08-18 21:16] VITALS: BP 175/94; PULSE 73; RESP 16; O2SAT 98
[2023-08-18] MEDS: chlorproMAZINE HCL 25 MG TABLET 50 MG PO (21:39)
== END 2023-08-18 21:44 | disposition home or self-care (01) ==
PROVIDERS: Emergency Medicine; Emergency Provider Emergency Medicine
DX: K27.9 Peptic ulcer, site unspecified, unspecified as acute or chronic, without hemorrhage or perforation (principal); F17.210 Nicotine dependence, cigarettes, uncomplicated; Z98.890 Other specified postprocedural states
CPT/HCPCS: 36415; 80053; 85025; 85610; 85730; 86850; 86900; 86901; 96374; 99284; A9270; C9113

== ENCOUNTER 2024-08-01 20:55 | Emergency (ER) | payer OTHER, BC, MEDICAID, SELFPAY ==
--- NOTE | ~2024-08-01 | XR_ITS ---
XR abdomen gastric tube insert Ordering provider: Kendell Chen MD History: . NG tube insertion . Comparison: None. FINDINGS/impression: Nasogastric tube with the tip in the body of the stomach. Reviewed, dictated and finalized at location A.
--- NOTE | ~2024-08-01 | CT_ITS ---
CT abdomen pelvis w con Ordering provider: Kendell Chen MD History: 59 years Male with . Abdominal pain . Comparison: January 21, 2020 Technique: CT abdomen and pelvis with IV and without oral contrast. Automated exposure control and it erative reconstruction technique were employed. The dose-length product was 493.35 mGy-cm. 100 mL Omn ipaque 350 was given IV. Findings: Motion artifacts are noted. VISUALIZED LOWER CHEST: Normal. UPPER ABDOMINAL ORGANS: Liver: Normal. Gallbladder: Normal. Spleen: Normal. Stomach/duodenum: Nasogastric tube is seen in the stomach. Sliding hiatus hernia is noted with thicke sony of esophagus wall suggestive of reflux esophagitis. Pancreas: Normal. Adrenals: Left adrenal adenoma is seen measuring 1.4 cm. No follow-up is advised unless clinically in dicated. Kidneys: Right kidney simple cyst measuring 7.4 cm. Bilateral calcifications are noted suggestive of vascular calcifications with possible kidney stones. Small left kidney cyst is noted. PELVIC ORGANS: The bladder is normal. BOWEL AND MESENTERY: Colon: No evidence of diverticulitis. Appendix is not demonstrated.. Small Bowel: Normal. No obstruction. Peritoneum/mesentery: No free air or free fluid. No mesenteric lymphadenopathy. RETROPERITONEUM: Severe atheromatous disease of the abdominal aorta. Moderate to severe Narrowing in the distal superior mesenteric artery is noted. No retroperitoneal lymphadenopathy. MUSCULOSKELETAL: Superficial soft tissues: The superficial soft tissues are normal. Bones: Age appropriate degenerative changes of the spine. Dextroscoliosis. IMPRESSION: 1. No evidence of appendicitis, diverticulitis or intestinal obstruction. 2. 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 3. Sliding hiatus hernia. 4. Bilateral renal cysts with the largest on the right kidney. 5. Bilateral renal calcification suggestive of vascular calcifications or stones unchanged. 6. Left adrenal adenoma. No follow-up advised unless clinically warranted. Reviewed, dictated and finalized at location A. IMPRESSION: 1. No evidence of appendicitis, diverticulitis or intestinal obstruction. 2. 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 3. Sliding hiatus hernia. 4. Bilateral renal cysts with the largest on the right kidney. 5. Bilateral renal calcification suggestive of vascular calcifications or ston es unchanged. 6. Left adrenal adenoma. No follow-up advised unless clinically warranted.
--- OUTSIDE RECORDS SUMMARY | 2024-08-01 20:57 | XMS_ITS | Continuity of Care Document ---
Author Organization [facility] Address [address] [place] [address] Phone Care Team Providers Care Network Intern Name Role Phone Susana Granados MD Unavailable Unavailabl e Results Test Name Date and Time Measure Units Reference Range Abnormal Flag Status Comments Panel Description: STOOL CARDS - SCREENING Unkn own OCCULT1 00:00:00 pos A Unknown Advance Directives Directive Yes / No Effective Date File Name No Information Encounters Encounter Description Practice Location Reason(s) For Visit Diagnoses Date Provider Providers [facility] [address] [place], [place], [id number], tel:[phone] [place] SCREEN MAL NEOP-RECTUMD VRTCLI COLON W HMRHGVIRAL ENTERITIS NOSFOLLOW-UP EXAM NOS Roberta Meza. [address] [place], [place], [id number]. tel:[phone] Family History Family Member Type Diagnosis Age At Onset No Information Payers Payer name Insurance type Covered libertarian ID Authoriza tion(s) No Information Social History Type Description Quantity Date Captured Comments Sex Male Smoking Status No Information Chief Complaint And Reason For Visit No Information Reason For Referral Reason For Referral No Information History Of Present Illness Encounter Date Complaint History Of Prese nt Illness No Information Functional Status Date Functional Assessmen t No Information Instructions Date Instruction Additional Infor mation No Information Assessments Type Assessment Date No Information Patient Care Teams Name Effective Dates (start - stop) Status Members No Information
--- OUTSIDE RECORDS SUMMARY | 2024-08-01 20:57 | XMS_ITS | Continuity of Care Document ---
Author Name Josi Moreno Address [address] [facility] [place] [address] Organization Unknown Address [address] [place], [place] [id number] [place] [address] Medications No known medications Problems No known problems
--- OUTSIDE RECORDS SUMMARY | 2024-08-01 20:57 | XMS_ITS | CONTINUITY OF CARE DOCUMENT ---
Author Name shea valdivia Address Unknown Organization [facility] Address [address] [address] [place] [address] Phone [phone] Care Team Providers Care Warehouse Logistics Manager Name Role Phone Jarod Sanders MD Unavailable [phone] Jarod Sanders MD Unavailable INSURANCE PROVIDERS Payer name Policy type / Coverage type Myrna red libertarian [place] [employer] Medicaid 1 [id number]
--- OUTSIDE RECORDS SUMMARY | 2024-08-01 20:57 | XMS_ITS | Clinical Summary ---
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 Gender Identity Not on file Sexual Orientation Not on file Plan of Treatment Health Maintenance Due Date Last Done Comments DTAP/TDAP/TD VACCINES (1 - Tdap) 02/15/1983 COLORECTAL SCREENING 02/15/2009 Colorectal Cancer Screening 02/15/2009 FIT-DNA Q 3 years 02/15/2009 FIT/FOBT Q 1 year 02/15/2009 Flex Sig/CT Colonography Q 5 years 02/15/2009 ZOSTER VACCINE (1 of 2) 02/15/2014 INFLUENZA VACCINE (#1) 2023 RSV VACCINE (60+ or ) (1 - 1-dose 75+ series) 02/15/2039 HEPATITIS B VACCINES Aged Out No long er eligible based on patient's age to complete this topic PNEUMOCOCCAL VACCINE 0-49 YEARS Aged Out No longer eligible based on patient's age to complete this topic Insurance WORKERS COMP
--- OUTSIDE RECORDS SUMMARY | 2024-08-01 20:57 | XMS_ITS | Continuity of Care Document ---
Author Name Josi oMreno Address [address] [facility] [address] [place] [address] Organization Unknown Address [address] [place], [place] [id number] [place] [address] Medications No known medications Problems No known problems
[2024-08-01 20:59] VITALS: BP 199/86; PULSE 75; RESP 18; TEMP 36.6; O2SAT 100
[2024-08-01 21:52] VITALS: BP 175/94; PULSE 77; RESP 18; O2SAT 99
--- OUTSIDE RECORDS SUMMARY | 2024-08-01 22:12 | XMS_ITS | CONTINUITY OF CARE DOCUMENT ---
Author Name shea valdivia Address Unknown Organization [facility] Address [address] [facility] [address] [facility] [facility] [address] [place] [address] Phone [phone] Care Team Providers Care Director Speech And Hearing Name Role Phone Jarod Sanders MD Unavailable Jarod Sanders MD Unavailable INSURANCE PROVIDERS Payer name Policy type / Coverage type Myrna red republican [place] [employer]ILY [employer] Medicaid 1 [id number]
--- OUTSIDE RECORDS SUMMARY | 2024-08-01 22:12 | XMS_ITS | Clinical Summary ---
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
--- OUTSIDE RECORDS SUMMARY | 2024-08-01 22:12 | XMS_ITS | Continuity of Care Document ---
Author Organization [facility] Address [address] [place] [address] Phone Care Team Providers Care Campaign Assistant Name Role Phone Susana Granados MD Unavailable Unavailabl e Results Test Name Date and Time Measure Units Reference Range Abnormal Flag Status Comments Panel Description: STOOL CARDS - SCREENING Unkn own OCCULT1 00:00:00 pos A Unknown Advance Directives Directive Yes / No Effective Date File Name No Information Encounters Encounter Description Practice Location Reason(s) For Visit Diagnoses Date Provider Providers [facility] [address], [place], [place], [id number], tel:[phone] [place] SCREEN MAL NEOP-RECTUMD VRTCLI COLON W HMRHGVIRAL ENTERITIS NOSFOLLOW-UP EXAM NOS Roberta Meza. [address] [place], [place], [id number]. tel:[phone] Family History Family Member Type Diagnosis Age At Onset No Information Payers Payer name Insurance type Covered green party ID Authoriza tion(s) No Information Social History [...]
[2024-08-01 22:18] VITALS: BP 182/85; PULSE 67; RESP 13; O2SAT 97
[2024-08-01] MEDS: SODIUM CHLORIDE 0.9% IV 1,000 ML 999 ML IV CONT (22:44)
[2024-08-01 22:45] VITALS: PULSE 71; RESP 16; O2SAT 98
[2024-08-01] MEDS: PANTOPRAZOLE SODIUM IV 40 MG VIAL 80 MG IV PUSH (22:45)
[2024-08-01] MEDS: ONDANSETRON INJ 4 MG/2 ML VIAL IV PUSH (22:45)
[2024-08-01 22:49] LABS: Basophils Absolute Auto 0.1 K/mm3 (0.0-0.1); Eosinophils Absolute Auto 0.2 K/mm3 (0-0.3); Eosinophils Percent Auto 1.5 % (0-4.4); Hematocrit 46.8 % (42.0-52.0); Hemoglobin 15.7 g/dL (14.0-18.0); Immature Granulocyte Absolute 0.03 K/mm3 (0.00-0.031); Immature Granulocyte Percent A 0.3 % (0-0.5); Lymphocytes Absolute Auto 3.16 K/mm3 (0.9-3.2); Lymphocytes Percent Auto 28.3 % (18.3-44.2); Mean Corpuscular HGB Conc 33.5 g/dl (32-36); Mean Corpuscular Hemoglobin 29.6 pg (26-34); Mean Corpuscular Volume 88.1 fl (80-100); Monocytes Absolute Auto 0.9 K/mm3 (0.1-0.6); Monocytes Percent Auto 8.2 % (2.6-8.5); Neutrophils Absolute Auto 6.8 K/mm3 (1.3-6.7); Neutrophils Percent Auto 60.7 % (45.5-73.1); Platelet Count Result 322 k/mm3 (150-375); Red Blood Count 5.31 M/mm3 (4.6-6.20); Red Cell Distribution Width 12.7 % (11.5-14.5); White Blood Count 11.2 K/mm3 (4.5-10.0)
[2024-08-01 22:55] VITALS: BP 198/95; PULSE 73; RESP 16; O2SAT 98
[2024-08-01 23:03] LABS: Prothrombin Time 13.3 Seconds (11.1-14.7)
[2024-08-01 23:04] LABS: Partial Thromboplastin Time 31.9 Seconds (22.3-36.8)
[2024-08-01 23:06] LABS: Alanine Aminotransferase 16 U/L (6-50); Albumin Level 4.1 g/dL (3.5-5.1); Alkaline Phosphatase 93 U/L (38-126); Anion Gap 9 mmol/L (4-12); Aspartate Amino Transferase 17 U/L (17-59); Bilirubin,Total 0.5 mg/dL (0.2-1.3); Blood Urea Nitrogen 13 mg/dL (9-20); Calcium 8.9 mg/dL (8.4-10.2); Carbon Dioxide 28 mmol/L (22-30); Chloride 100 mmol/L (98-107); Estimated CRCL calculation 96 ml/min; Estimated Glomerular Filt Rate > 60; Glucose 99 mg/dL (65-110); Sodium 137 mmol/L (137-145)
[2024-08-01 23:07] LABS: Lactic Acid Reflex 1.3 mmol/L (0.7-2.0)
[2024-08-01 23:21] LABS: Ammonia < 9 umol/L (9-30)
[2024-08-01 23:51] LABS: Gastric Negative Control Negative; Gastric Positive Control Positive; Occult Blood Gastric Fluid Positive; pH Gastric Fluid 2 (1-8)
--- NOTE | 2024-08-02 00:23 | ED.GENADULT ---
HPI - General Adult General Chief complaint: GI Bleed Stated complaint: vomiting blood-has bleeding ulcer Time Seen by Provider: 08/01/24 22:01 History of Present Illness HPI narrative: Patient is 59-year-old gentleman who presents emergency department with chief complaint of nausea vomiting and hiccuping. Patient states that he had some blood in his vomit that he described as more of a coffee-ground type material patient states that he has had irritation in his epigastric region and reports that he has felt nauseated. The patient states that he has history of an ulcer in the past Related Data Home Medications ?Medication ?Instructions ?Recorded ?Confirmed ?Last Taken ?Type hydrocodone 5 mg-acetaminophen 325 1 tablet PO Q6H PRN Pain 12/19/19 12/23/19 Unknown History mg tablet ([place]) mirabegron 50 mg tablet,extended 50 mg PO DAILY 12/19/19 12/23/19 Unknown History release 24 hr (Myrbetriq) tamsulosin 0.4 mg capsule mg PO 12/25/19 Unknown History tramadol 50 mg tablet mg 12/25/19 12/25/19 Unknown History Allergies Allergy/AdvReac Type Severity Reaction Status Date / Time No Known Allergies Allergy Verified 08/18/23 20:02 Review of Systems Review of Systems: A 10 system review of systems was completed on the patient and is negative except for what is stated in the HPI. Nursing and ancillary documentation was reviewed. PMFSH Past Medical History Medical History Marijuana abuse Smoker Urolithiasis Surgical History Surgical History H/O lithotripsy Social History Social History Smoking packs per day: 2 Smoking cigarettes per day: 40.0 Years smoked: 40 Smoking pack-years: 80.00 Smoking status: Current every day smoker Tobacco type: cigarettes Substance use: current Substance use type: marijuana Last use: 12/19/2019 Gender identity (if verbalized by the patient): Male Spiritual care concerns: No Exam Narrative: GENERAL: Well-appearing, well-nourished, and in no acute distress. HEAD: Normocephalic, atraumatic. EYES: PERRLA and EOMI. ENT: Nares clear, no rhinorrhea or epistaxis. Mucous membranes moist. NECK: Supple. CHEST: Clear to auscultation. No respiratory distress. HEART: Regular rate and rhythm. No murmur heard. Normal peripheral pulses. ABDOMEN: Soft, nontender, nondistended, normal active bowel sounds. EXTREMITIES: Normal range of motion. No edema. : Guaiac-negative stool SKIN: Warm, dry, no rash. NEURO: No focal deficits. Alert and oriented x3. PSYCH: Normal mood and affect. Course Vital Signs Vital signs: Vital Signs Temperature 36.6 C 08/01/24 20:59 Pulse Rate 75 08/01/24 20:59 Respiratory Rate 18 08/01/24 20:59 Blood Pressure 199/86 H 08/01/24 20:59 Pulse Oximetry 100 08/01/24 20:59 Oxygen Delivery Room Air 08/01/24 20:59 Temperature 36.6 C 08/01/24 20:59 Pulse Rate 73 08/01/24 22:55 Respiratory Rate 16 08/01/24 22:55 Blood Pressure 198/95 H 08/01/24 22:55 Pulse Oximetry 98 08/01/24 22:55 Oxygen Delivery Room Air 08/01/24 20:59 Medical Decision Making [facility] Narrative Medical decision making narrative: Differential diagnosis includes gastritis, GI bleed, intra-abdominal infection Patient is guaiac negative on rectal exam NG tube was placed in the emergency department showed no active bleeding there was gastroccult positive material but the patient did have some trauma with placement of the NG tube. Laboratory studies showed a white count of 11.2 and a hemoglobin of 15.7 electrolytes are within normal limits lactate was normal CT abdomen pelvis showed 1. No evidence of appendicitis, diverticulitis or intestinal obstruction. 2. 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 3. Sliding hiatus hernia. 4. Bilateral renal cysts with the largest on the right kidney. 5. Bilateral renal calcification suggestive of vascular calcifications or stones unchanged. 6. Left adrenal adenoma. No follow-up advised unless clinically warranted. Patient is feeling better at this time be discharged home on Protonix and will be discharged home on a prescription for oral Compazine to help with pickups and nausea Vital Signs Vital Signs: Vital Signs Temperature 36.6 C 08/01/24 20:59 Pulse Rate 75 08/01/24 20:59 Respiratory Rate 18 08/01/24 20:59 Blood Pressure 199/86 H 08/01/24 20:59 Pulse Oximetry 100 08/01/24 20:59 Oxygen Delivery Room Air 08/01/24 20:59 Temperature 36.6 C 08/01/24 20:59 Pulse Rate 73 08/01/24 22:55 Respiratory Rate 16 08/01/24 22:55 Blood Pressure 198/95 H 08/01/24 22:55 Pulse Oximetry 98 08/01/24 22:55 Oxygen Delivery Room Air 08/01/24 20:59 Lab Data 08/01/24 22:41 08/01/24 22:41 Labs: Lab Results 08/01/24 08/01/24 08/01/24 Range/Units 22:41 22:56 23:41 WBC 11.2 H (4.5-10.0) K/mm3 RBC 5.31 (4.6-6.20) M/mm3 Hgb 15.7 (14.0-18.0) g/dL Hct 46.8 (42.0-52.0) % MCV 88.1 (80-100) fl MCH 29.6 (26-34) pg MCHC 33.5 (32-36) g/dl RDW 12.7 (11.5-14.5) % Plt Count 322 (150-375) k/mm3 MPV 10.0 (7.4-10.4) fl Immature Gran % (Auto) 0.3 (0-0.5) % Neut % (Auto) 60.7 (45.5-73.1) % Lymph % (Auto) 28.3 (18.3-44.2) % [place] % (Auto) 8.2 (2.6-8.5) % Eos % (Auto) 1.5 (0-4.4) % Baso % (Auto) 1.0 (0.2-1.2) % Lymph # (Auto) 3.16 (0.9-3.2) K/mm3 [place] # (Auto) 0.9 H (0.1-0.6) K/mm3 Eos # (Auto) 0.2 (0-0.3) K/mm3 Baso # (Auto) 0.1 (0.0-0.1) K/mm3 Abs Immat Gran (auto) 0.03 (0.00-0.031) K/mm3 Absolute Neuts (auto) 6.8 H (1.3-6.7) K/mm3 Absolute Nucleated RBC 0.000 (0.0-0.012) K/mm3 Nucleated RBC % 0.0 (0.0-0.2) % PT 13.3 (11.1-14.7) Seconds INR 1.0 APTT 31.9 (22.3-36.8) Seconds Sodium 137 (137-145) mmol/L Potassium 4.0 (3.4-5.0) mmol/L Chloride 100 (98-107) mmol/L Carbon Dioxide 28 (22-30) mmol/L Anion Gap 9 (4-12) mmol/L BUN 13 (9-20) mg/dL Creatinine 0.68 L (0.7-1.3) mg/dL Estim Creat Clear Calc 96 ml/min Estimated GFR > 60 (59 - ) Glucose 99 (65-110) mg/dL Lactic Acid 1.3 (0.7-2.0) mmol/L Calcium 8.9 (8.4-10.2) mg/dL Total Bilirubin 0.5 (0.2-1.3) mg/dL AST 17 (17-59) U/L ALT 16 (6-50) U/L Alkaline Phosphatase 93 (38-126) U/L Ammonia < 9 L (9-30) umol/L Total Protein 7.0 (6.3-8.2) g/dL Albumin 4.1 (3.5-5.1) g/dL Gastric Fluid pH 2 (1-8) Gastric Occult Blood Positive H Blood Type O Positive Antibody Screen Negative Discharge Plan Discharge Clinical Impression: Nausea & vomiting, Hiccoughs, Gastritis Patient Disposition: Home Condition: Stable Instructions: Antibiotic Form, Gastritis (ED), Hiccups (ED), Acute Nausea and Vomiting (ED) Patient Language: Turkmen Prescriptions: New pantoprazole [Protonix] 40 mg tablet,delayed release (DR/EC) 40 mg PO HS 28 Days Qty: 28 0RF prochlorperazine maleate [Compazine] 10 mg tablet 10 mg PO Q8H PRN (Reason: nausea and vomiting) Qty: 20 0RF No Action hydrocodone-acetaminophen [[place]] 5-325 mg Tablet 1 tablet PO Q6H PRN (Reason: Pain) Myrbetriq 50 mg Tablet Extended Release 24 Hr 50 mg PO DAILY tramadol 50 mg tablet tamsulosin 0.4 mg capsule PO cefdinir 300 mg capsule 300 mg PO Q12H Qty: 14 0RF ondansetron HCl [Zofran] 4 mg tablet 4 mg PO Q8H PRN (Reason: nausea and vomiting) Qty: 10 0RF ketorolac 10 mg tablet 10 mg PO Q6H PRN (Reason: pain) Qty: 14 0RF pantoprazole [Protonix] 40 mg tablet,delayed release (DR/EC) 40 mg PO HS 42 Days Qty: 42 0RF sucralfate [Carafate] 1 gram tablet 1 g PO TID 30 Days Qty: 90 0RF ondansetron 4 mg tablet,disintegrating 4 mg PO Q8H PRN (Reason: nausea and vomiting) Qty: 30 0RF cyclobenzaprine 5 mg tablet 5 mg PO TID PRN (Reason: muscle spasm) Qty: 20 0RF methylprednisolone [Medrol (Elan)] 4 mg tablets,dose pack See Rx Instructions .ROUTE .COMPLEX Qty: 21 0RF Rx Instructions: orally per package directions Follow-up/Referrals: PHYSICIAN,SENIOR HOUSEKEEPER [Primary Care Provider] - Bryson Fisher MD [Physician] - Time of Disposition: 00:28
[2024-08-02] MEDS: PROCHLORPERAZINE MALEATE 5 MG TABLET 10 MG PO (00:35)
--- NOTE | 2024-08-02 00:36 | PC.NURSE ---
this rn removed G tube. pt was able to tolerate ng tube removal well.
== END 2024-08-02 00:38 | disposition home or self-care (01) ==
PROVIDERS: Emergency Provider Emergency Medicine
DX: K29.70 Gastritis, unspecified, without bleeding (principal); R06.6 Hiccough; F17.210 Nicotine dependence, cigarettes, uncomplicated; Z87.442 Personal history of urinary calculi; Z79.899 Other long term (current) drug therapy; K44.9 Diaphragmatic hernia without obstruction or gangrene; N28.1 Cyst of kidney, acquired; D35.02 Benign neoplasm of left adrenal gland; I70.0 Atherosclerosis of aorta; I77.1 Stricture of artery
CPT/HCPCS: 36415; 74177; 80053; 82140; 82271; 83605; 83986; 85025; 85610; 85730; 86850; 86900; 86901; 96361; 96374; 96375; 99284; A9270; J2405; J2470; J7030; Q9967